=== PATIENT | female | born 1960 | race Caucasian/White ===

== ENCOUNTER 2020-04-21 07:49 | Outpatient (REF) | payer OTHER, SELFPAY ==
[2020-04-21 10:21] LABS: Hematocrit 42.6 % (37-47); Mean Corpuscular HGB Conc 32.9 g/dl (31.0-35.0); Mean Corpuscular Hemoglobin 32.3 pg (27.0-33.0); Mean Corpuscular Volume 98.4 fL (80-98); Mean Platelet Volume 10.2 fL (9.4-12.3); Platelet Count 258 X10*3/uL (160-400); Red Blood Count 4.33 X10*6/uL (4.20-5.50); Red Cell Distribution Width 12.9 % (11.0-16.0); White Blood Count 5.9 X10*3/uL (4.8-10.8)
[2020-04-21 10:40] LABS: Alanine Aminotransferase 30 U/L (0-31); Albumin Level 4.5 g/dL (3.5-5.0); Alkaline Phosphatase 62 U/L (39-117); Anion Gap 10 (12-20); Aspartate Amino Transferase 23 U/L (5-31); Bilirubin Direct 0.2 mg/dL (0.0-0.5); Bilirubin Total 0.5 mg/dL (0.0-1.0); Blood Urea Nitrogen 14 mg/dL (9-16); Calcium 9.1 mg/dL (8.4-10.2); Carbon Dioxide 30 mmol/L (22-29); Chloride 103 mmol/L (96-108); Cholesterol 147 mg/dL; Estimated Glomerular Filt Rate > 60; Glucose Fasting 94 mg/dL (60-99); HDL Cholesterol 43 mg/dL; LDL Cholesterol Calculated 79 mg/dl; Magnesium 2.3 mg/dL (1.6-2.6); Potassium 4.4 mmol/l (3.3-5.1); Sodium 139 mmol/L (135-145); Total Protein 6.8 g/dL (6.5-8.0); Triglycerides 129 mg/dL
[2020-04-21 11:02] LABS: Thyroid Stimulating Hormone 1.93 uIU/mL (0.32-4.0); Vitamin D 25-OH Total 33.2 ng/mL (>30)
== END 2020-04-21 07:50 | disposition home or self-care (01) ==
LOC: HO.10HDL 07:49
DX: E03.9 Hypothyroidism, unspecified (principal); E78.5 Hyperlipidemia, unspecified; Z00.00 Encounter for general adult medical examination without abnormal findings
CPT/HCPCS: 36415; 80053; 80061; 80076; 82248; 82306; 83735; 84439; 84443; 85027

== ENCOUNTER 2021-08-18 08:46 | Outpatient (REF) | payer OTHER, SELFPAY ==
[2021-08-18 11:02] LABS: Alanine Aminotransferase 39 U/L (0-31); Albumin Level 4.7 g/dL (3.5-5.0); Alkaline Phosphatase 63 U/L (39-117); Anion Gap 11 (12-20); Aspartate Amino Transferase 27 U/L (5-31); Bilirubin Total 0.5 mg/dL (0.0-1.0); Blood Urea Nitrogen 13 mg/dL (9-16); Calcium 9.9 mg/dL (8.4-10.2); Carbon Dioxide 28 mmol/L (22-29); Chloride 108 mmol/L (96-108); Cholesterol 216 mg/dL; Estimated Glomerular Filt Rate > 60; Glucose Random 100 mg/dL (60-115); HDL Cholesterol 45 mg/dL; LDL Cholesterol Calculated 146 mg/dl; Potassium 4.9 mmol/L (3.3-5.1); Sodium 142 mmol/L (135-145); Total Protein 7.4 g/dL (6.5-8.0); Triglycerides 127 mg/dL
[2021-08-19 09:21] LABS: Thyroglobulin Antibodies <1 IU/mL (< or = 1); Thyroid Peroxidase Antibodies <1 IU/mL (<9)
== END 2021-08-18 08:47 | disposition home or self-care (01) ==
LOC: HO.10HDL 08:46
PROVIDERS: Visit Provider Internal Medicine
DX: Z00.00 Encounter for general adult medical examination without abnormal findings (principal); E03.9 Hypothyroidism, unspecified; E78.5 Hyperlipidemia, unspecified
CPT/HCPCS: 36415; 80053; 80061; 86376; 86800

== ENCOUNTER 2022-03-12 08:25 | Outpatient (REF) | payer OTHER, SELFPAY ==
[2022-03-12 09:46] LABS: Alanine Aminotransferase 26 U/L (0-31); Albumin Level 4.6 g/dL (3.5-5.0); Alkaline Phosphatase 72 U/L (39-117); Anion Gap 14 (12-20); Aspartate Amino Transferase 21 U/L (5-31); Bilirubin Total 0.7 mg/dL (0.0-1.0); Blood Urea Nitrogen 13 mg/dL (9-16); Calcium 9.8 mg/dL (8.4-10.2); Carbon Dioxide 25 mmol/L (22-29); Chloride 105 mmol/L (96-108); Cholesterol 164 mg/dL; Estimated Glomerular Filt Rate > 60; Glucose Fasting 97 mg/dL (60-99); HDL Cholesterol 43 mg/dL; LDL Cholesterol Calculated 97 mg/dl; Potassium 4.4 mmol/L (3.3-5.1); Sodium 140 mmol/L (135-145); Total Protein 7.1 g/dL (6.5-8.0); Triglycerides 123 mg/dL
[2022-03-12 09:58] LABS: Thyroid Stimulating Hormone 1.07 uIU/mL (0.32-4.0)
== END 2022-03-12 08:26 | disposition home or self-care (01) ==
LOC: HO.LAB 08:25
PROVIDERS: PCP Internal Medicine; Visit Provider Internal Medicine
DX: E78.5 Hyperlipidemia, unspecified (principal); E03.9 Hypothyroidism, unspecified
CPT/HCPCS: 36415; 80053; 80061; 84443

== ENCOUNTER 2022-09-06 09:03 | Outpatient (REF) | payer OTHER, SELFPAY ==
[2022-09-06 10:10] LABS: Alanine Aminotransferase 24 U/L (0-31); Albumin Level 4.5 g/dL (3.5-5.0); Alkaline Phosphatase 67 U/L (39-117); Anion Gap 10 (12-20); Aspartate Amino Transferase 19 U/L (5-31); Bilirubin Total 0.8 mg/dL (0.0-1.0); Blood Urea Nitrogen 14 mg/dL (9-16); Carbon Dioxide 29 mmol/L (22-29); Chloride 108 mmol/L (96-108); Cholesterol 166 mg/dL; Estimated Glomerular Filt Rate > 60; Glucose Fasting 97 mg/dL (60-99); HDL Cholesterol 52 mg/dL; LDL Cholesterol Calculated 96 mg/dl; Potassium 4.7 mmol/L (3.3-5.1); Sodium 142 mmol/L (135-145); Total Protein 6.7 g/dL (6.5-8.0); Triglycerides 90 mg/dL
[2022-09-06 10:25] LABS: Thyroid Stimulating Hormone 0.37 uIU/mL (0.32-4.0)
== END 2022-09-06 09:04 | disposition home or self-care (01) ==
LOC: HO.LAB 09:03
PROVIDERS: PCP Internal Medicine; Visit Provider Internal Medicine
DX: E78.5 Hyperlipidemia, unspecified (principal); E03.9 Hypothyroidism, unspecified
CPT/HCPCS: 36415; 80053; 80061; 84443

== ENCOUNTER 2023-01-11 17:00 | Outpatient (AMB) | payer OTHER, SELFPAY ==
[2023-01-11 17:02] VITALS: BP 124/80; BMI 23.9
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
== END 2023-01-11 17:40 | disposition home or self-care (01) ==
PROVIDERS: PCP Internal Medicine; Visit Provider Internal Medicine
DX: R07.81 Pleurodynia (principal); F31.9 Bipolar disorder, unspecified; E03.9 Hypothyroidism, unspecified; E78.5 Hyperlipidemia, unspecified; Z09 Encounter for follow-up examination after completed treatment for conditions other than malignant neoplasm
CPT/HCPCS: 99214

== ENCOUNTER 2023-01-12 08:07 | Outpatient (REF) | payer OTHER, SELFPAY ==
--- NOTE | ~2023-01-12 | XR_ITS ---
EXAMINATION: XR RIBS, LEFT, WITH PA CHEST CLINICAL INFORMATION: Pleurodynia. COMPARISON: None available. TECHNIQUE: 5 views of the left ribs were obtained, together with a PA view of the chest. FINDINGS: Lungs are clear. No consolidation, pneumothorax, or pleural effusion. The cardiomediastinal silhouette and pulmonary vasculature are normal. Osseous structures are unremarkable. Ribs are intact. No fractures are identified. There is a mild cervicothoracic levoscoliosis. XR/XR ribs LT min 3V w CXR1V IMPRESSION: Unremarkable examination.
== END 2023-01-12 08:08 | disposition home or self-care (01) ==
LOC: HO.XRAY 08:07
PROVIDERS: PCP Internal Medicine; Visit Provider Internal Medicine
DX: R07.81 Pleurodynia (principal)
CPT/HCPCS: 71101

== ENCOUNTER 2023-03-09 08:02 | Outpatient (AMB) | payer OTHER, SELFPAY ==
[2023-03-09 08:08] VITALS: BP 122/80; PULSE 62; O2SAT 99; BMI 24.4
--- NOTE | 2023-03-09 08:08 | A.OFFPC_ITS ---
Vital Signs 03/09/23 08:08 Height 5 ft 4 in Weight 142 lb BMI 24.4 BP 122/80 Blood Pressure Location Lt brachial Position Sitting Pulse 62 Pulse Source Pulse Oximeter Pulse Oximetry (%) 99 Oxygen Delivery Method Room Air Intake Visit Reasons: thyorid Intake Note: Patient here for a follow up thyroid Anesthesia Tech Required: No Accompanied by: Self / Same As Patient Allergies No Known Allergies Allergy (Verified 03/09/23 08:22) Medication List - Last Reconciled 03/09/23 by Treasure Sutherland MD atorvastatin 20 mg PO BEDTIME 90 days bisacodyl (Dulcolax (bisacodyl)) 20 mg (4 x 5 mg) PO ONCE 1 day lamotrigine 200 mg PO BID levothyroxine 125 mcg PO DAILY lithium carbonate 300 mg PO BEDTIME peg 3350-electrolytes 236-22.74-6.74 -5.86 gram 240 mL PO Q10M propranolol ER 160 mg PO DAILY Tobacco use date assessed: 09/06/22 Fall risk assessment: 1 Fall in past year Last assessed Fall Risk: 03/09/23 Dental Screening Dental Screen Date: 03/09/23 Did you have a dental visit in the last 12 months?: Yes Did you have a dental problem in the last 6 months where you did not have access to dental care?: No Was dental information given to patient?: Patient has dentist HPI HPI Comments History of Present Illness Details This is a 62-year-old female with dyslipidemia, hypothyroidism, bipolar disorder and coarse tremors that comes today for follow-up on her conditions. Last cholesterol was stable with statins and reports no side effects. Last TSH was normal and this will be repeated today. Bipolar disorder stable with lithium and this is follow by Psychiatry. Still has coarse tremors even though she is compliant with propanolol and this is follow by Neurology. No chest pain or shortness of breath. [facility] Medical History Physical exam Bipolar 1 disorder Coarse tremors Hypothyroidism Dyslipidemia Surgical History No pertinent past surgical history Family History Father Heart attack Mother Emphysema lung Social History Housing: Apartment Alcohol intake: current Alcohol intake frequency: a few times a week Alcohol type: wine Patient Tobacco Use Status: Never used Tobacco e-Cigarette/Vaping Use: Never Used Second Hand Smoke Exposure: No service: No Current occupational status: unemployed Cognitive needs: No Hearing needs: No Vision needs: Yes Questionnaire Thrive Questionnaire Date Thrive assessed: 09/06/22 HEATH-7 AMB Questionnaire HEATH-7 Date HEATH - 7 assessed: 09/06/22 Source: Developed by Drs. Ned Watt, Rekha Mehta, Dutch Mancini and colleagues, with an educational laisha from [employer]. Review of Systems Const All systems reviewed & are unremarkable except as noted in HPI and below Eyes Reports no additional complaints, Denies change in vision and Denies other visual disturbances Card Denies chest pain at rest, Denies chest pain with activity, Denies edema, Denies irregular heart rhythm, Denies claudication, Denies dyspnea, Denies dyspnea on exertion, Denies orthopnea, Denies paroxysmal nocturnal dyspnea and Denies slow heart rate Resp Denies cough, Denies dyspnea and Denies dyspnea on exertion GI Denies abdominal pain, Denies change in bowel habits, Denies excessive flatus, Denies nausea and Denies vomiting Denies urinary incontinence, Denies urinary hesitancy and Denies urinary urgency Musc Denies atrophy, Denies deformity and Denies limited range of motion Physical exam (Primary Care) Vital Signs: Last Vital Signs Pulse 62 03/09/23 08:08 BP 122/80 03/09/23 08:08 Pulse Ox 99 03/09/23 08:08 Oxygen Delivery Method Room Air 03/09/23 08:08 BMI result Body Mass Index 24.4 Tobacco/Smoking Status: Tobacco use Status Tobacco use date assessed 09/06/22 03/09/23 08:11 Patient Tobacco Use Status Never used Tobacco 03/09/23 08:11 Tobacco use type 09/06/22 08:57 e-Cigarette/Vaping Use Never Used 03/09/23 08:11 Thrive Assessment: Date of Thrive Assessment Date Thrive assessed 09/06/22 03/09/23 08:11 Eyes General: appearance normal, both eyes and all related structures Eyelids: Yes eyelids normal Conjunctivae: conjunctivae normal Neck Neck: Yes normal visual inspection and Yes supple Resp Effort & Inspection: normal respiratory effort Auscultation: clear to auscultation bilaterally Cardio Jugular venous distension: no JVD Rate: regular rate Rhythm: regular rhythm Heart sounds: S1 normal heart sound present and S2 normal heart sound present Extrem General: Yes full ROM Office Procedures Flu Questionnaire Does the patient have a severe egg allergy?: No Immunizations flu vacc [id number] 6mos up(PF) 60 mcg(15 mcgx4)/0.5 mL IM syringe Performing Provider: Treasure Sutherland MD Performing Location: [facility] Documented (not given) by: YOBANY Garcia on 03/09/23 08:14 Reason Not Given: Patient Refused Assessment and Plan Assessment & Plan (1) Hypothyroidism: Code(s): E03.9 - Hypothyroidism, unspecified Qualifiers: Hypothyroidism type: unspecified Qualified Code(s): E03.9 - Hypothyroidism, unspecified Plan: Continue levothyroxine. Monitor TSH. (2) Dyslipidemia: Code(s): E78.5 - Hyperlipidemia, unspecified Plan: Continue statins. (3) Bipolar 1 disorder: Comment: Dr. Damon psych Code(s): F31.9 - Bipolar disorder, unspecified Plan: Continue lithium. Follow-up with psychiatry. (4) Coarse tremors: Comment: Dr. Yoder Code(s): G25.2 - Other specified forms of tremor Plan: Continue propanolol. Follow-up with Neurology. Orders: Orders Influenza [id number] Immunization Today Z23 - Encounter for immunization Thyroid Stimulating Hormone Today E03.9 - Hypothyroidism, unspecified Coding Level of Care Code Est Pt Level 4 (29005) Diagnoses Hypothyroidism, unspecified type E03.9 Hypothyroidism type: unspecified Dyslipidemia E78.5 Bipolar 1 disorder F31.9 Coarse tremors G25.2 Time Spent (min) 23
== END 2023-03-09 10:11 | disposition home or self-care (01) ==
PROVIDERS: Visit Provider Internal Medicine
DX: E03.9 Hypothyroidism, unspecified (principal); E78.5 Hyperlipidemia, unspecified; F31.9 Bipolar disorder, unspecified; G25.2 Other specified forms of tremor
CPT/HCPCS: 99214

== ENCOUNTER 2023-03-09 08:39 | Outpatient (REF) | payer OTHER, SELFPAY ==
[2023-03-09 09:42] LABS: Alanine Aminotransferase 27 U/L (0-31); Albumin Level 4.6 g/dL (3.5-5.0); Alkaline Phosphatase 72 U/L (39-117); Anion Gap 11 (12-20); Aspartate Amino Transferase 22 U/L (5-31); Bilirubin Total 0.4 mg/dL (0.0-1.0); Blood Urea Nitrogen 13 mg/dL (9-16); Carbon Dioxide 27 mmol/L (22-29); Chloride 107 mmol/L (96-108); Cholesterol 169 mg/dL (<200); Estimated Glomerular Filt Rate > 60; Glucose Fasting 95 mg/dL (60-99); HDL Cholesterol 45 mg/dL (>40); LDL Cholesterol Calculated 103 mg/dL (<100); Potassium 4.3 mmol/L (3.3-5.1); Sodium 141 mmol/L (135-145); Total Protein 7.4 g/dL (6.5-8.0); Triglycerides 107 mg/dL (<150)
[2023-03-09 09:52] LABS: Thyroid Stimulating Hormone 2.65 uIU/mL (0.32-4.0)
== END 2023-03-09 08:40 | disposition home or self-care (01) ==
LOC: HO.LAB 08:39
PROVIDERS: PCP Internal Medicine; Visit Provider Internal Medicine
DX: E03.9 Hypothyroidism, unspecified (principal); E78.5 Hyperlipidemia, unspecified
CPT/HCPCS: 36415; 80053; 80061; 84443

== ENCOUNTER 2023-07-04 06:50 | Day surgery (SDC) | payer OTHER, SELFPAY ==
--- NOTE | 2023-07-03 09:44 | P.CONAN_ITS ---
Documented by User: Lizz Montero NP 07/03/23 09:44 HPI - Anesthesia Eval Consult details Narrative: 62yo F for Colonoscopy PMFSH Active Problems Active Problems: All Active Problems (Updated 06/30/23 @ 10:17 by Treasure Sutherland MD) Skin lesion (Acute) Acute pancreatitis (Acute) Hospital discharge follow-up (Acute) Rib pain on left side (Acute) Physical exam (Acute) Bipolar 1 disorder (Acute) Coarse tremors (Acute) Hypothyroidism (Acute) Dyslipidemia (Acute) Past Medical History Medical History Physical exam Bipolar 1 disorder Coarse tremors Hypothyroidism Dyslipidemia Family History Family History Father Heart attack Mother Emphysema lung Surgical History Surgical History No pertinent past surgical history Social History Social History Housing: Apartment Alcohol intake: current Alcohol intake frequency: a few times a week Alcohol type: wine Patient Tobacco Use Status: Never used Tobacco e-Cigarette/Vaping Use: Never Used Second Hand Smoke Exposure: No Use of substances other than those prescribed or required for medical reasons: Yes Are you DNR?: No Advance Directives: No Advance Directives Information Provided: Yes service: No Current occupational status: unemployed Cognitive needs: No Hearing needs: No Vision needs: Yes Meds Allergies Allergy/AdvReac Type Severity Reaction Status Date / Time No Known Allergies Allergy Verified 03/09/23 08:22 Home Medications Medication Instructions Recorded Confirmed Last Taken Type lamotrigine 200 mg tablet 200 mg PO BID 08/31/20 07/04/23 07/04/23 History lithium carbonate 300 mg capsule 300 mg PO BEDTIME 08/31/20 03/09/23 Unknown History propranolol 160 mg capsule,24 160 mg PO DAILY 08/31/20 07/04/23 07/04/23 History hr,extended release levothyroxine 125 mcg tablet 125 mcg PO DAILY 08/18/21 07/04/23 07/04/23 History Assessment and Plan Assessment Anesthesia Assessment: Chart Reviewed Documented by User: Doroteo Cali MD 07/04/23 07:38 [facility] Past Medical History Medical History Physical exam Bipolar 1 disorder Coarse tremors Hypothyroidism Dyslipidemia Family History Family History Father Heart attack Mother Emphysema lung Surgical History Surgical History No pertinent past surgical history History of Problems with Anesthesia: No Social History Social History Housing: Apartment Alcohol intake: current Alcohol intake frequency: a few times a week Alcohol type: wine Patient Tobacco Use Status: Never used Tobacco e-Cigarette/Vaping Use: Never Used Second Hand Smoke Exposure: No Use of substances other than those prescribed or required for medical reasons: Yes Are you DNR?: No Advance Directives: No Advance Directives Information Provided: Yes service: No Current occupational status: unemployed Cognitive needs: No Hearing needs: No Vision needs: Yes Meds Allergies Allergy/AdvReac Type Severity Reaction Status Date / Time No Known Allergies Allergy Verified 03/09/23 08:22 Home Medications Medication Instructions Recorded Confirmed Last Taken Type lamotrigine 200 mg tablet 200 mg PO BID 08/31/20 07/04/23 07/04/23 History lithium carbonate 300 mg capsule 300 mg PO BEDTIME 08/31/20 03/09/23 Unknown History propranolol 160 mg capsule,24 160 mg PO DAILY 08/31/20 07/04/23 07/04/23 History hr,extended release levothyroxine 125 mcg tablet 125 mcg PO DAILY 08/18/21 07/04/23 07/04/23 History Exam Airway Mallampati Class: I TM Dist: >3cm Neck ROM: Full Loose/Missing/Broken Teeth: No Heart: rrr Lungs: cta b/l Assessment and Plan Assessment Anesthesia Assessment: Anesthesia Plan Discussed Final Anesthetic Review History of Problems with Anesthesia: No NPO: Yes ASA Class: II Final Preanesthetic Review: No Changes in Pt Med Stat, Meds/Allgs Chart Reviewed, Consent Obtained/Reviewed and Anes Risks/Benef Reviewed Patient Risk: Low Procedure Risk: Low Anesthetic Plan Anesthetic Plan: MAC: Disposition: Standard PACU
--- NOTE | 2023-07-04 06:43 | MHC.SHP ---
Pre-Procedural Eval Section A - 24 Hr Update-Section A only Date of Service: 07/04/23 Section B - Complete if H&P > 30 days Chief Complaint: screening Relevant Family History (Specify if Yes): No Relevant Social History: None Present Medications: see Short Stay Collaborative assessment Medical History: Significant History (Bipolar 1 disorder Coarse tremors Hypothyroidism Dyslipidemia) History of Previous Operations: No relevant previous surgery Allergies: Allergies Allergy/AdvReac Type Severity Reaction Status Date / Time No Known Allergies Allergy Verified 03/09/23 08:22 Review of Systems Sugical H&P ROS: Negative: Constitution, Cardiovascular, Respiratory, Neurological, Psychiatric, Hem-Onc, Allergic/Immunologic, Gastrointestinal, Genitourinary, Musculoskeletal, Integumentary, Endocrine and Eyes/Ears/Nose/Throat Exam Surgical H&P Exam: Normal: HEENT, Normal: Heart, Normal: Lungs, Normal: Extremities, Normal: Abdomen and Normal: Skin and Significant Findings: Neurological (tremor) Plan Diagnosis/Plan: Unchanged I have reviewed the history and physical and performed a pertinent physical examination on my patient. No changes have occurred unless specified. Time Spent With Patient Time: Total time managing care of this patient today ____ minutes.
[2023-07-04 07:10] VITALS: BMI 25.1
[2023-07-04 07:21] VITALS: BP 136/79; PULSE 69; RESP 16; TEMP 36.5; O2SAT 97
[2023-07-04] MEDS: Lactated Ringers 1,000 ML 100 ML IVCONT (07:28)
--- NOTE | 2023-07-04 08:08 | P.OP_ITS ---
Operative Note Operative Note Date of Service: 07/04/23 Narrative: Operative Information Procedure Description: Colonoscopy Indication: screening Anesthesia: MAC COLONOSCOPY Instrument: Olympus variable stiffness pediatric scope 190L Colonoscopy Monitoring: Vital signs and clinical assessment, continuous EKG monitoring, Pulse oximetry, Carbon Dioxide monitoring and blood pressure monitoring were done throughout the procedure. Colon withdrawal time was 8 minutes. Procedure: The patient was placed in the left lateral decubitis position and pre-procedure medications were administered. After a digital rectal examination of the ano-rectum, the video colonoscope was inserted into the rectum and advanced through the colon to the cecum/TI. The colonoscope was slowly withdrawn in a retrograde panoramic fashion and the colon mucosa was carefully examined including a retroflexed view of the rectum. Findings and interventions are described below. Procedure Difficulty: easy Findings: Terminal Ileum-normal Cecum:normal Rigth sided retroflexion- normal Ascending Colon: normal Transverse Colon -normal Descending Colon:normal Sigmoid Colon: normal Rectum: Retroflexion with small internal hemorrhoids, grade I Anorectum - normal Colon preparation: [place] Bowel Preparation Scale Right colon; 2 Transverse colon: 2 Left colon; 3 (0 = Unprepared colon segment with mucosa not seen due to solid stool that cannot be cleared. 1 = Portion of mucosa of the colon segment seen, but other areas of the colon segment not well seen due to staining, residual stool and/or opaque liquid. 2 = Minor amount of residual staining, small fragments of stool and/or opaque liquid, but mucosa of colon segment seen well. 3 = Entire mucosa of colon segment seen well with no residual staining, small fragments of stool or opaque liquid) Impression and Post Procedure Diagnosis: internal hemorrhoids Plan: High fiber diet leaflet Avoid straining at stool, epsom salts and sitz bath, anusol supps or cream Repeat Colonoscopy in 10 years or earlier if clinically indicated Above findings were reviewed with the patient and relevant handouts were provided if indicated.
[2023-07-04 08:42] VITALS: BP 95/50; PULSE 66; RESP 16; TEMP 36.4; O2SAT 96
[2023-07-04 08:50] VITALS: BP 101/56; PULSE 58; RESP 16; O2SAT 98
[2023-07-04 08:57] VITALS: BP 111/61; PULSE 59; RESP 16; O2SAT 100
[2023-07-04 09:12] VITALS: BP 121/69; PULSE 57; RESP 16; TEMP 36.4; O2SAT 100
== END 2023-07-04 09:28 | disposition home or self-care (01) ==
PROVIDERS: PCP Internal Medicine; Visit Provider Internal Medicine Gastroenterology
PROC: 0DJD8ZZ Inspection of Lower Intestinal Tract, Via Natural or Artificial Opening Endoscopic (ICD-10-PCS; CPT 45378; principal; 2023-07-04 08:20)
DX: Z12.11 Encounter for screening for malignant neoplasm of colon (principal); K64.0 First degree hemorrhoids; F31.9 Bipolar disorder, unspecified; G25.2 Other specified forms of tremor; E03.9 Hypothyroidism, unspecified; E78.5 Hyperlipidemia, unspecified; Z79.899 Other long term (current) drug therapy
CPT/HCPCS: 45378; J2704

== ENCOUNTER → 2023-07-04 06:50 | Outpatient (BNV) | payer OTHER, SELFPAY | PROVIDERS: PCP Internal Medicine; Visit Provider Internal Medicine Gastroenterology | DX: Z12.11 Encounter for screening for malignant neoplasm of colon (principal); K64.0 First degree hemorrhoids | CPT/HCPCS: 45378 ==

== ENCOUNTER 2023-08-21 12:53 | Emergency (ER) | payer OTHER, SELFPAY | END 2023-08-21 13:17 | disposition left against medical advice (07) | PROVIDERS: Emergency Provider Emergency Medicine; PCP Internal Medicine | DX: Z53.21 Procedure and treatment not carried out due to patient leaving prior to being seen by health care provider (principal); S09.90XA Unspecified injury of head, initial encounter; X58.XXXA Exposure to other specified factors, initial encounter; Y93.9 Activity, unspecified; Y92.9 Unspecified place or not applicable; Y99.9 Unspecified external cause status ==

== ENCOUNTER 2023-08-31 12:24 | Outpatient (AMB) | payer OTHER, SELFPAY ==
--- NOTE | 2023-08-31 12:31 | A.OFFPC_ITS ---
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 Accompanied by: Self / Same As Patient Allergies No Known Allergies Allergy (Verified 09/01/23 07:29) Medication List - Last Reconciled 09/01/23 by Treasure Sutherland MD atorvastatin 20 mg PO BEDTIME 90 days cyclobenzaprine 5 mg PO BEDTIME PRN 7 days lamotrigine 200 mg PO BID levothyroxine 125 mcg PO DAILY lithium carbonate 300 mg PO BEDTIME propranolol ER 160 mg PO DAILY Tobacco use date assessed: 08/31/23 Fall risk assessment: 1 Fall in past year Last assessed Fall Risk: 08/31/23 Dental Screening Dental Screen Date: 08/31/23 Did you have a dental visit in the last 12 months?: Yes Did you have a dental problem in the last 6 months where you did not have access to dental care?: No Was dental information given to patient?: Patient has dentist HPI HPI Comments History of Present Illness Details This is a 62-year-old female with dyslipidemia, hypothyroidism and bipolar disorder that comes today to remove 7 cheri in her head that were placed 10 days ago due to hitting her head in cement after falling. She did not lose consciousness. Head CT was done and was negative. The injury looks clean. She also has lumbar pain and right hip pain that started few days ago with very mild relief from muscle relaxer. The pain is worse when she changed from sitting position to standing position. On statins for her cholesterol which has been stable. Last TSH was normal. Bipolar disorder is follow by Psychiatry and has been well control with lithium. [facility] Medical History (Updated 09/01/23 @ 07:33 by Treasure Sutherland MD) Physical exam Bipolar 1 disorder Coarse tremors Hypothyroidism Dyslipidemia Surgical History No pertinent past surgical history Family History Father Heart attack Mother Emphysema lung Social History Housing: Apartment Alcohol intake: current Alcohol intake frequency: a few times a week Alcohol type: wine Patient Tobacco Use Status: Never used Tobacco e-Cigarette/Vaping Use: Never Used Second Hand Smoke Exposure: No service: No Current occupational status: unemployed Cognitive needs: No Hearing needs: No Vision needs: Yes Questionnaire PHQ-9 Over the last 2 weeks, how often have you been bothered by any of the following problems? 1. Little interest or pleasure in doing things: not at all 2. Feeling down, depressed, or hopeless: not at all 3. Trouble falling or staying asleep, or sleeping too much: not at all 4. Feeling tired or having little energy: not at all 5. Poor appetite or overeating: not at all 6. Feeling bad about yourself - or that you are a failure or have let yourself or your family down: not at all 7. Trouble concentrating on things, such as reading the newspaper or watching television: not at all 8. Moving or speaking so slowly that other people could have noticed. Or the opposite - being so fidgety or restless that you have been moving around a lot more than usual: not at all 9. Thoughts that you would be better off or of hurting yourself in some way: not at all Total score: 0 Depression Screening Interpretation: Negative Depression Screening Done: Yes 46950 - PHQ-9 Billing: Yes Source: Developed by Drs. Ned Watt, Rekha Mehta, Dutch Mancini and colleagues, with an educational laisha from [employer]. Thrive Questionnaire Date Thrive assessed: 08/31/23 I am a: Patient What is your living situation today?: I have a steady place to live Within the past 12 months, did the food you bought not last and you didn't have the money to get more?: Never true Within the past 12 months, did you worry whether your food would run out before you got money to buy more?: Never true Do you have trouble paying for medicines?: No Do you have trouble getting transportation to medical appointments?: No Do you have trouble paying your heating and electricity bill?: No Do you have trouble taking care of your child, family member or friend?: No Do you have trouble with day-to-day activities such as bathing, preparing meals, shopping, managing finances, etc.?: No Are you currently unemployed and looking for a job?: No Are you interested in more education?: No Please select the resources that you would like help with: None Currently or been in a relationship where the following occur: no concerns reported THRIVE Score: 0 AUDIT C Alcohol Use Questionnaire (AUDIT-C) 1. How often do you have a drink containing alcohol?: 2-3 times a week 2. How many drinks containing alcohol do you have on a typical day when you are drinking?: 1 or 2 3. How often do you have six or more drinks on one occasion?: Never Total Score: 3 Score Reviewed/Action Taken: Yes HEATH-7 AMB Questionnaire HEATH-7 Date HEATH - 7 assessed: 08/31/23 Feeling nervous, anxious, or on edge: 0 = Not at all Not being able to stop or control worryin = Not at all Worrying too much about different things: 0 = Not at all Trouble relaxin = Not at all Being so restless that it is hard to sit still: 0 = Not at all Becoming easily annoyed or irritable: 0 = Not at all Feeling afraid as if something awful might happen: 0 = Not at all Total HEATH-7 score (0-4 normal; 5-9 mild; 10-14 moderate; 15-21 severe): 0 Source: Developed by Drs. Ned Watt, Rekha Mehta, Dutch Mancini and colleagues, with an educational laisha from [employer]. HEATH-7 Assessment Billing HEATH-7 Assessment Tool: HEATH-7 Assessment 03993 Review of Systems Const All systems reviewed & are unremarkable except as noted in HPI and below Eyes Reports no additional complaints, Denies change in vision and Denies other visual disturbances Card Denies chest pain at rest, Denies chest pain with activity, Denies edema, Denies irregular heart rhythm, Denies claudication, Denies dyspnea, Denies dyspnea on exertion, Denies orthopnea, Denies paroxysmal nocturnal dyspnea and Denies slow heart rate Resp Denies cough, Denies dyspnea and Denies dyspnea on exertion GI Denies abdominal pain, Denies change in bowel habits, Denies excessive flatus, Denies nausea and Denies vomiting Denies urinary incontinence, Denies urinary hesitancy and Denies urinary urgency Physical exam (Primary Care) Vital Signs: Last Vital Signs BP 126/80 08/31/23 12:32 BMI result Body Mass Index 24.8 Tobacco/Smoking Status: Tobacco use Status Tobacco use date assessed 08/31/23 08/31/23 12:37 Patient Tobacco Use Status Never used Tobacco 08/31/23 12:37 Tobacco use type 09/06/22 08:57 e-Cigarette/Vaping Use Never Used 08/31/23 12:37 PHQ-9: PHQ-9 Score PHQ-9: Total score 0 08/31/23 12:37 Depression Screening Interpretation: Negative Thrive Assessment: Date of Thrive Assessment Date Thrive assessed 08/31/23 08/31/23 12:37 Currently or been in a relationship where the following occur: no concerns reported Resp Effort & Inspection: normal respiratory effort Auscultation: clear to auscultation bilaterally Cardio Jugular venous distension: no JVD Rate: regular rate Rhythm: regular rhythm Heart sounds: S1 normal heart sound present and S2 normal heart sound present Extrem General: Yes full ROM Assessment and Plan Assessment & Plan (1) Encounter for staple removal: Code(s): Z48.02 - Encounter for removal of sutures Plan: Seven stable successfully removed without complication. (2) Bipolar 1 disorder: Comment: Dr. Damon psych Code(s): F31.9 - Bipolar disorder, unspecified Plan: Continue lithium. (3) Hypothyroidism: Code(s): E03.9 - Hypothyroidism, unspecified Qualifiers: Hypothyroidism type: unspecified Qualified Code(s): E03.9 - Hypothyroidism, unspecified Plan: Continue levothyroxine. Monitor TSH. (4) Dyslipidemia: Code(s): E78.5 - Hyperlipidemia, unspecified Plan: Continue statins. Continue low-cholesterol diet. (5) Lumbar pain: Code(s): M54.50 - Low back pain, unspecified Plan: X-ray ordered. (6) Right hip pain: Code(s): M25.551 - Pain in right hip Plan: X-ray ordered. Orders: Orders XR hip RT min 2V 08/31/23 M25.551 - Pain in right hip XR lumbar spine 2-3V 08/31/23 M54.50 - Low back pain, unspecified Coding Level of Care Code Est Pt Level 4 (35650) Diagnoses Encounter for staple removal Z48.02 Bipolar 1 disorder F31.9 Hypothyroidism, unspecified type E03.9 Hypothyroidism type: unspecified Dyslipidemia E78.5 Lumbar pain M54.50 Right hip pain M25.551 Additional Codes HEATH-7 Assessment Billing - HEATH-7 Assessment Tool: HEATH-7 Assessment [id number] ([id number]) Time Spent (min) 28
[2023-08-31 12:32] VITALS: BP 126/80; BMI 24.8
== END 2023-08-31 13:34 | disposition home or self-care (01) ==
PROVIDERS: PCP Internal Medicine; Visit Provider Internal Medicine
DX: E03.9 Hypothyroidism, unspecified (principal); F31.9 Bipolar disorder, unspecified; Z48.02 Encounter for removal of sutures; E78.5 Hyperlipidemia, unspecified; M54.50 Low back pain, unspecified; M25.551 Pain in right hip
CPT/HCPCS: 99214

== ENCOUNTER 2023-08-31 13:41 | Outpatient (REF) | payer OTHER, SELFPAY ==
--- NOTE | ~2023-08-31 | XR_ITS ---
EXAMINATION: XR HIP, RIGHT CLINICAL INFORMATION: Pain in right hip COMPARISON: Left hip 06/13/2014 TECHNIQUE: Two views of the right hip. FINDINGS: No fracture or dislocation. Hip joint space is maintained. Mild supra-acetabular sclerosis. Small osteophyte extends off the femoral head. XR/XR hip RT min 2V IMPRESSION: No significant bony abnormality.
--- NOTE | ~2023-08-31 | XR_ITS ---
EXAMINATION: XR LUMBOSACRAL SPINE CLINICAL INFORMATION: Low back pain, unspecified COMPARISON: Lumbar spine 06/13/2014 TECHNIQUE: Three views of the lumbosacral spine. FINDINGS: There are 5 nonrib-bearing lumbar-type vertebral bodies. The height of the vertebral bodies is well-maintained. There is straightening of the usual lumbar lordosis which can be seen with muscle spasm. There is interval development of disc space narrowing at L2-L3, L4-L5 and L5-S1 with marginal osteophyte formation. There is mild retrolisthesis of L3 with respect to L4 and L2 with respect to L3. There is multilevel degenerative facet joint disease, most notable at L5-S1. XR/XR lumbar spine 2-3V IMPRESSION: 1. Muscle spasm. 2. Multilevel degenerative disc disease. 3. Multilevel degenerative facet joint disease, most notable at L5-S1. 4. Multilevel retrolisthesis.
== END 2023-08-31 13:42 | disposition home or self-care (01) ==
LOC: HO.XRAY 13:41
PROVIDERS: Visit Provider Internal Medicine
DX: M25.551 Pain in right hip (principal); M54.50 Low back pain, unspecified
CPT/HCPCS: 72100; 73502

== ENCOUNTER 2023-09-11 08:23 | Outpatient (AMB) | payer OTHER, SELFPAY ==
[2023-09-11 08:26] VITALS: BP 118/82; BMI 25.0
--- NOTE | 2023-09-11 08:26 | MHC.PC.OV ---
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 Accompanied by: Self / Same As Patient Allergies No Known Allergies Allergy (Verified 09/11/23 08:43) Medication List - Last Reconciled 09/11/23 by Treasure Sutherland MD atorvastatin 20 mg PO BEDTIME 90 days lamotrigine 200 mg PO BID levothyroxine 125 mcg PO DAILY lithium carbonate 300 mg PO BEDTIME propranolol ER 160 mg PO DAILY Tobacco use date assessed: 08/31/23 Fall risk assessment: 1 Fall in past year Last assessed Fall Risk: 09/11/23 Dental Screening Dental Screen Date: 08/31/23 HPI HPI Comments History of Present Illness Details This is a 62-year-old female that comes for her physical exam. She has bipolar disorder follow by Psychiatry that has been well controlled with medications. Last mammogram was less than a year ago and was normal as per patient. Last Pap smear was about 2-3 years ago and she follows with OBGYN annually. Last colonoscopy was June 2023 which was normal and next colonoscopy should be 2033. Denies any chest pain or shortness of breath. Had lumbar spasm that is markedly improved. [facility] Medical History Physical exam Bipolar 1 disorder Coarse tremors Hypothyroidism Dyslipidemia Surgical History No pertinent past surgical history Family History Father Heart attack Mother Emphysema lung Social History Housing: Apartment Alcohol intake: current Alcohol intake frequency: a few times a week Alcohol type: wine Patient Tobacco Use Status: Never used Tobacco e-Cigarette/Vaping Use: Never Used Second Hand Smoke Exposure: No service: No Current occupational status: unemployed Cognitive needs: No Hearing needs: No Vision needs: Yes Questionnaire Thrive Questionnaire Date Thrive assessed: 08/31/23 HEATH-7 AMB Questionnaire HEATH-7 Date HEATH - 7 assessed: 08/31/23 Source: Developed by Drs. Ned Watt, Rekha Mehta, Dutch Mancini and colleagues, with an educational laisha from [employer]. Review of Systems Const All systems reviewed & are unremarkable except as noted in HPI and below Eyes Reports no additional complaints, Denies change in vision and Denies other visual disturbances Card Denies chest pain at rest, Denies chest pain with activity, Denies edema, Denies irregular heart rhythm, Denies claudication, Denies dyspnea, Denies dyspnea on exertion, Denies orthopnea, Denies paroxysmal nocturnal dyspnea and Denies slow heart rate Resp Denies cough, Denies dyspnea and Denies dyspnea on exertion GI Denies abdominal pain, Denies change in bowel habits, Denies excessive flatus, Denies nausea and Denies vomiting Denies urinary incontinence, Denies urinary hesitancy and Denies urinary urgency Musc Denies abnormal gait, Denies atrophy, Denies deformity and Denies limited range of motion Neuro Denies abnormal gait and Denies lack of coordination Physical exam (Primary Care) Vital Signs: Last Vital Signs BP 118/82 09/11/23 08:26 BMI result Body Mass Index 25.0 Tobacco/Smoking Status: Tobacco use Status Tobacco use date assessed 08/31/23 09/11/23 08:30 Patient Tobacco Use Status Never used Tobacco 09/11/23 08:30 Tobacco use type 09/06/22 08:57 e-Cigarette/Vaping Use Never Used 09/11/23 08:30 Thrive Assessment: Date of Thrive Assessment Date Thrive assessed 08/31/23 09/11/23 08:30 Const Orientation/consciousness: patient oriented x3 [facility] Head: Yes normal to inspection, Yes normocephalic and Yes atraumatic Ears: external ears normal Eyes General: appearance normal, both eyes and all related structures Eyelids: Yes eyelids normal Conjunctivae: conjunctivae normal Neck Neck: Yes normal visual inspection and Yes supple Resp Effort & Inspection: normal respiratory effort Auscultation: clear to auscultation bilaterally Cardio Jugular venous distension: no JVD Rate: regular rate Rhythm: regular rhythm Heart sounds: S1 normal heart sound present and S2 normal heart sound present GI Inspection: Yes normal to inspection Palpation (GI): Soft to palpation and nontender Auscultation: normal bowel sounds Skin General skin exam: no rashes or lesions noted Neuro General: patient oriented x3 and no focal motor deficits Extrem General: Yes full ROM Psych Appearance: grossly normal Assessment and Plan Assessment & Plan (1) Physical exam: Code(s): Z00.00 - Encounter for general adult medical examination without abnormal findings Plan: Repeat in a year. (2) Bipolar 1 disorder: Comment: Dr. Damon psych Code(s): F31.9 - Bipolar disorder, unspecified Plan: Continue lamotrigine. Follow-up with psychiatry. Orders: Orders Thyroid Stimulating Hormone Today E03.9 - Hypothyroidism, unspecified Coding Level of Care Code Est Pt Prev Care 40-64y(55859) Diagnoses Physical exam Z00.00 Bipolar 1 disorder F31.9 Time Spent (min) 32
== END 2023-09-11 08:57 | disposition home or self-care (01) ==
PROVIDERS: Visit Provider Internal Medicine
DX: Z00.00 Encounter for general adult medical examination without abnormal findings (principal); F31.9 Bipolar disorder, unspecified
CPT/HCPCS: 99396

== ENCOUNTER 2024-03-13 08:18 | Outpatient (AMB) | payer OTHER, SELFPAY ==
--- NOTE | 2024-03-13 08:22 | MHC.PC.OV ---
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 Accompanied by: Self / Same As Patient Allergies No Known Allergies Allergy (Verified 03/13/24 08:48) Medication List - Last Reconciled 03/13/24 by Treasure Sutherland MD atorvastatin 20 mg PO BEDTIME 90 days lamotrigine 200 mg PO BID levothyroxine 125 mcg PO DAILY lithium carbonate 300 mg PO BEDTIME propranolol ER 160 mg PO DAILY Tobacco use date assessed: 08/31/23 Fall risk assessment: No Falls in past year Last assessed Fall Risk: 03/13/24 Dental Screening Dental Screen Date: 03/13/24 Did you have a dental visit in the last 12 months?: Yes Did you have a dental problem in the last 6 months where you did not have access to dental care?: No Was dental information given to patient?: Patient has dentist HPI HPI Comments History of Present Illness Details This is a 63-year-old female with hypothyroidism, bipolar disorder, coarse tremors and dyslipidemia that comes today for follow-up on her conditions. Last TSH was normal. Bipolar disorder is follow by Psychiatry and has been stable with [facility]. She has coarse tremors follow by Neurology on has noticed that tremors has worsened. Will discuss it with Neurology. Had bronchitis about a month ago and is still occasionally coughing. No chest pain or shortness on breath. On statins for elevated cholesterol and reports no side effects. [facility] Medical History Physical exam Bipolar 1 disorder Coarse tremors Hypothyroidism Dyslipidemia Surgical History No pertinent past surgical history Family History Father Heart attack Mother Emphysema lung Social History Housing: Apartment Alcohol intake: current Alcohol intake frequency: a few times a week Alcohol type: wine Patient Tobacco Use Status: Never used Tobacco e-Cigarette/Vaping Use: Never Used Second Hand Smoke Exposure: No service: No Current occupational status: unemployed Cognitive needs: No Hearing needs: No Vision needs: Yes Questionnaire Thrive Questionnaire Date Thrive assessed: 08/31/23 HEATH-7 AMB Questionnaire HEATH-7 Date HEATH - 7 assessed: 08/31/23 Source: Developed by Drs. Ned Watt, Rekha Mehta, Dutch Mancini and colleagues, with an educational laisha from [employer]. Review of Systems Const All systems reviewed & are unremarkable except as noted in HPI and below Eyes Reports no additional complaints, Denies change in vision and Denies other visual disturbances Card Denies chest pain at rest, Denies chest pain with activity, Denies edema, Denies irregular heart rhythm, Denies claudication, Denies dyspnea, Denies dyspnea on exertion, Denies orthopnea, Denies paroxysmal nocturnal dyspnea and Denies slow heart rate Resp Denies cough, Denies dyspnea and Denies dyspnea on exertion Physical exam (Primary Care) Vital Signs: Last Vital Signs BP 126/80 03/13/24 08:23 BMI result Body Mass Index 24.3 Tobacco/Smoking Status: Tobacco use Status Tobacco use date assessed 08/31/23 03/13/24 08:28 Patient Tobacco Use Status Never used Tobacco 03/13/24 08:28 Tobacco use type 09/06/22 08:57 e-Cigarette/Vaping Use Never Used 03/13/24 08:28 Thrive Assessment: Date of Thrive Assessment Date Thrive assessed 08/31/23 03/13/24 08:28 Resp Effort & Inspection: normal respiratory effort Auscultation: clear to auscultation bilaterally Cardio Jugular venous distension: no JVD Rate: regular rate Rhythm: regular rhythm Heart sounds: S1 normal heart sound present and S2 normal heart sound present Extrem General: Yes full ROM Coding Level of Care Code Est Pt Level 4 (14348) Complex EM visit Add On G2211 Diagnoses Bipolar 1 disorder F31.9 Hypothyroidism, unspecified type E03.9 Hypothyroidism type: unspecified Dyslipidemia E78.5 Coarse tremors G25.2 Time Spent (min) 22 Assessment & Plan Assessment & Plan (1) Bipolar 1 disorder: Comment: Dr. Damon psych Code(s): F31.9 - Bipolar disorder, unspecified Category: Medical Plan: Continue lithium. (2) Hypothyroidism: Code(s): E03.9 - Hypothyroidism, unspecified Category: Medical Qualifiers: Hypothyroidism type: unspecified Qualified Code(s): E03.9 - Hypothyroidism, unspecified Plan: Continue levothyroxine. Monitor TSH. (3) Dyslipidemia: Code(s): E78.5 - Hyperlipidemia, unspecified Category: Medical Plan: Continue statins. (4) Coarse tremors: Comment: Dr. Yoder Code(s): G25.2 - Other specified forms of tremor Category: Medical Plan: Continue propranolol. Follow-up with Neurology. Orders: Orders Influenza [id number] Immunization Today Z23 - Encounter for immunization Lipid Panel 6 Months E78.5 - Hyperlipidemia, unspecified Comprehensive [place]. Panel Fast 6 Months G25.2 - Other specified forms of tremor Thyroid Stimulating Hormone 6 Months E03.9 - Hypothyroidism, unspecified Medications: New benzonatate 100 mg PO BID PRN 10 caps 0RF cough 5 days Fluarix Triv [id number] (PF) (flu vacc [id number] 6mos up(PF)) 0.5 mL IM ONCE 0.5 mL 0RF NS Z23 - Encounter for immunization
[2024-03-13 08:23] VITALS: BP 126/80; BMI 24.3
== END 2024-03-13 08:59 | disposition home or self-care (01) ==
LOC: HO.HMCH 08:19
PROVIDERS: PCP Internal Medicine; Visit Provider Internal Medicine
DX: F31.9 Bipolar disorder, unspecified (principal); E03.9 Hypothyroidism, unspecified; E78.5 Hyperlipidemia, unspecified; G25.2 Other specified forms of tremor

== ENCOUNTER 2024-05-09 15:51 | Outpatient (REF) | payer OTHER, SELFPAY ==
--- OUTSIDE RECORDS SUMMARY | 2024-05-09 17:16 | XMS_ITS | Data Portability ---
Author Organization [facility], [address] Address [address] [place] [address] Care Team Providers Care Computational Physicist Name Role Phone JAY HOFF Primary Care Provider [phone] Assessment No assessment recorded. Plan of Treatment Reminders Order Date Submit Date Provider Last Modified By Organization Details Last Modified Time Details Appointments None recorded. Lab None recorded. Referral orthopedic surgeon referral - right knee pain getting worse . recent fall also. failing conservativ e treatment. need further evaluation and treatment. [address] [facility], [address], [place], [address], 3 16:14:23 Procedures None recorded. Surgeries None recorded. Imaging XR, knee, 3 view 2022 023 [facility], [address] [facility] [address] [place], [address], 3 16:23:46 Medication Orders None recorded. Patient TargetsNo targets recorded. Patient Instructions Encounter Date Encounter Id Patient Instructions Last Modified By Organization Details Last Modified Time 12/21/2022 [id number] knee pain or injury: care instructions Not available 12/21/2022 15:20:02 MUSCULOSKELETAL- K NEE: Inspection of the knee shows erythema no ecchymosis, or swelling. FROM was limited Palpation of the calf and popliteal fossa showed no mass or tenderness. Palpation of patella was tender. Palpation of medial and lateral joint lines were nontender. Patella ? grind-test? with crepitus. Valgus and Varus testing of the knee showed definite end points. Lateral collateral ligament was non-tender. Medial collateral ligament was nontender. Anterior Drawer Maneuvers: Normal Posterior Drawer maneuvers: Normal Thanh's: Positive Roxy's Negative Not available 12/21/2022 15:32:03 Reason for Referral Orthopedic Surgeon Referral for Pain of right knee joint right knee pain getting worse . recent fall also. failing conservative treatment. need further eval right knee pain getting worse . recent fall also. failing conservative treatment. need further evaluation and treatment. Referring Physician: Edgardo Guevara, Urgent Care, Encounter Date: 12/21/2022 Results Created Date Observation Date Name Description Value Unit Range Abnormal Flag Note LastModifiedBy Organization Detail LastModifiedTime 12/22/19 23 12/21/2022 XR, knee, 3 view No observ ation record ed. [email or web address] [address] [place], [address], 12/21/2022 18:07:52 Result Notes None recorded. Problems Name Problem SNOMED Code Status Onset Date Resolution Date Notes Provider Name and Address Organization Details Recorded Time Disorder of thyroid gland 43713495 Active CHRIS DEPINTO null, PA - [facility] 3 14:55:32 Hypercholestero lemia 49608483 Active CHRIS DEPINTO null, PA - [facility] 3 14:55:53 Problem Notes None recorded. Procedures Surgical History None recorded. Imaging Results Imaging Date Name Status LastModified by Organiz ation Details LastModified Time 12/21/2022 XR, knee, 3 view completed [email or web address] [address] [place], [address], 12/21/2022 18:07:52 Procedure Notes None recorded. Medical Equipment None Reported. Allergies No known drug allergies Medications Name Sig Start Date Stop Date Status Note LastModified by Organization Details LastModified Time atorvastatin 20 mg tablet TAKE 1 TABLET BY MOUTH AT BEDTIME active Not Available Not Available No t Available lamotrigine 200 mg tablet TAKE 2 TABLETS BY MOUTH EVERY DAY active Not Available Not Available No t Available levothyroxin e 100 mcg tablet TAKE 1 TABLET BY MOUTH EVERY MORNING 12/21 completed Not Available Not Available Not Available lithium carbonate 300 mg capsule TAKE 1 CAPSULE BY MOUTH AT BEDTIME active Not Available Not Available No t Available levothyroxin e 125 mcg tablet TAKE 1 TABLET BY MOUTH EVERY MORNING active Not Available Not Available No t Available Vitals Date Recorded Body height Body mass index (BMI) Body weight Respiratory rate Oxygen saturation Oxygen saturation in Arterial blood by Pulse oximetry Heart rate Body temperature Systolic blood pressure Diastolic blood pressure Provider Name and Address Organization Details Last Updated DateTime 3 160.02 cm 25.7 kg/m2 88579.8 9 g 18 /min 98 % 98 % 62 /min 98.6 [degF] 136 mm[Hg] 89 mm[Hg] CHRIS TAYLOR PA [facility] 3 14:57:21 Social History Question Answer Notes LastModified by Organizat ion Details LastModified Time Tobacco Smoking Status Never Smoker CHRIS newberry PA [facility] 12/21/2022 14:56:05 What Is Your Level Of Alcohol Consumption? Occasional Information not available 12/21/2022 How Many Times Per Week Do You Consume Alcohol? 3-4 Times Per Week Information not available 12/21/2022 Do You Use Any Illicit Or Recreational Drugs? No Information not available 12/21/2022 Have You Recently Traveled Abroad? No Information not available 12/21/2022 Do You Or Have You Ever Used Any Other Forms Of Tobacco Or Nicotine? No Information not available 12/21/2022 Sex: Unknown Functional Status None recorded. Mental Status None recorded. Family History Relationship Description Onset Age of this Age Resolved Age Notes LastModified by Organization Details LastModified Time Father No current problems or disability Not available 12/21 14:55:55 Mother No current problems or disability Not available 12/21 14:55:55 Medical History No medical history recorded. Gynecological History Statement/Question Response Date of LMP Is there any chance of ? No LMP N/A Obstetrics History GPAL:G 0 P 0 0 0 0 Immunizations Vaccine Type Date Status Note Provider Nam e and Address Organization Details Recorded Time COVID-19, mRNA, LNP-S, PF, 100 mcg/0.5mL dose or 50 mcg/0.25mL dose 04/09/2021 completed CHRIS DEPINTO null, PA - [facility] 12/21/2022 14:54:32 COVID-19, mRNA, LNP-S, PF, 30 mcg/0.3 mL dose 08/03/2020 completed CHRIS DEPINTO null, PA - [facility] 12/21/2022 14:54:32 COVID-19, mRNA, LNP-S, PF, 30 mcg/0.3 mL dose 08/24/2020 completed CHRIS DEPINTO null, PA - [facility] 12/21/2022 14:54:32 Past Encounters Encounter ID Performer Location Encounter Start Date Encounter Closed Date Diagnosis/Indication Diagnosis SNOMED-CT Code Diagnosis ICD10 Code [id number] [address] 12/28/2020 11:45:45 12/28/2020 12:29:49 [id number] Edgardo Guevara, FACING MACHINE OPERATOR [id number] [address] 12/21/2022 14:36:26 12/21/2022 16:14:22 Pain of right knee joint 8642866411 44730 M25.561 Health Concerns Section Related Observation LastModified by Organization Detai ls LastModified Time None Recorded Concern Status LastModified by Organization Details LastModified Time None Recorded Advance Directives Directive None Recorded Payers Encounter Date Sequence Insurance Name Policy Number Policy Alejandra Covered Member ID Alejandra Member ID Guarantor Name 12/28/2020 1 [facility] [id number] Sole Corcoran [id number] Sole Corcoran 12/21/2022 1 [facility] Franki Corcoran [id number] Sole Corcoran Notes Date Note Type Note Provider Name and Address Organization Details Recorded Time 12/21/2022 text/html KneeReported bypatient.Location :right; anterior; 62 year old female stating she experience fall yesterday and now her right knee bothering her a lot. she has hx of arthritis but now having difficulty walking on it, crepitus knees bilateral. no swelling or redness noted after fall. Quality:aching; sharp; constant; worsening Severity:moderate; pain level 6/10 Duration:1 days Timing:acute Context:fall Alleviating Factors:limited weight bearing Aggravating Factors:walking; lifting; carrying; pushing/pulling; weight bearing Associated Symptoms:no numbness; no tingling; no swelling; no warmth; no ecchymosis; no catching/locking; no buckling; no instability; no radiation down leg; no drainage; no fever; no chills; no weight loss; no change in bowel/bladder habits;weakness;re dness;grinding Previous Surgery:none Prior Imaging:none Previous Injections:none Previous PT:none Work Related:no Working:no Edgardo Guevara NP [address] [place], [address], [place] - [facility] 12/26/2022 08:52:28 OBGyn Episode No OBEpisode recorded.
[2024-05-09 18:09] LABS: Influenza A PCR POSITIVE (Negative); Influenza B PCR NEGATIVE (Negative); Resp Syncy Virus RNA Qual PCR NEGATIVE (Negative); SARS COV2 PCR INHOUSE NEGATIVE (Negative)
== END 2024-05-09 15:52 | disposition home or self-care (01) ==
LOC: HO.LAB 15:51
PROVIDERS: PCP Internal Medicine; Visit Provider Internal Medicine
DX: R09.89 Other specified symptoms and signs involving the circulatory and respiratory systems (principal)
CPT/HCPCS: 0241U

== ENCOUNTER 2024-09-12 08:23 | Outpatient (AMB) | payer MEDICARE, SELFPAY ==
--- NOTE | 2024-09-12 08:26 | MHC.PC.OV ---
Vital Signs 09/12/24 08:27 Height 5 ft 3 in Weight 134 lb BMI 23.7 BP 114/70 Blood Pressure Location Lt brachial Position Sitting Intake Visit Reasons: annual exam Intake Note: Patient here for an annual physical exam Outside Plant Supervisor Required: No Accompanied by: Self / Same As Patient Allergies No Known Allergies Allergy (Verified 09/12/24 08:53) Medication List - Last Reconciled 09/12/24 by Treasure Sutherland MD atorvastatin 20 mg PO BEDTIME 90 days lamotrigine 200 mg PO BID levothyroxine 125 mcg PO DAILY lithium carbonate 300 mg PO BEDTIME propranolol ER 160 mg PO DAILY Tobacco use date assessed: 09/12/24 Fall risk assessment: No Falls in past year Last assessed Fall Risk: 09/12/24 Dental Screening Dental Screen Date: 09/12/24 Did you have a dental visit in the last 12 months?: Yes Did you have a dental problem in the last 6 months where you did not have access to dental care?: No Was dental information given to patient?: Patient has dentist HPI HPI Comments History of Present Illness Details The patient is a 63-year-old female presenting for her routine physical examination and health maintenance. She reports a history of osteoarthritis, hyperlipidemia, essential tremor, and bipolar disorder. Cortisone injections were administered in both knees for osteoarthritis on August 13. She engages in physical therapy to address joint and hip strengthening. The patient is being managed with lithium, lamotrigine, and propranolol for her bipolar disorder and essential tremor, with the regimen overseen by her psychiatrist. She has hypothyroidism managed with levothyroxine. Her recent screening and immunization history include a tetanus vaccine received last year, a mammogram, and Pap smear completed, and the upcoming need for a pneumonia vaccine since she turned 63. A colonoscopy was completed last year with the next one planned for 2033. A bone densitometry test is due as it was last conducted more than five years ago. To address family history concerns of her brother's brain aneurysm, an MRI of the brain is planned despite her asymptomatology. - Tetanus vaccine administered last year; next dose in 2033 - Mammogram completed in April - Pap smear done in 2021; no further tests needed - Colonoscopy performed last year; next due in 2033 - Pneumonia vaccine to be given today - Bone densitometry test planned - MRI of the brain ordered due to family history of aneurysms [facility] Medical History (Updated 09/12/24 @ 09:06 by Treasure Sutherland MD) Physical exam Bipolar 1 disorder Coarse tremors Hypothyroidism Dyslipidemia Surgical History No pertinent past surgical history Family History Father Heart attack Mother Emphysema lung Social History Housing: Apartment Alcohol intake: current Alcohol intake frequency: a few times a week Alcohol type: wine Patient Tobacco Use Status: Never used Tobacco e-Cigarette/Vaping Use: Never Used Second Hand Smoke Exposure: No service: No Current occupational status: unemployed Cognitive needs: No Hearing needs: No Vision needs: Yes Questionnaire PHQ-9 Over the last 2 weeks, how often have you been bothered by any of the following problems? 1. Little interest or pleasure in doing things: not at all 2. Feeling down, depressed, or hopeless: not at all 3. Trouble falling or staying asleep, or sleeping too much: not at all 4. Feeling tired or having little energy: not at all 5. Poor appetite or overeating: not at all 6. Feeling bad about yourself - or that you are a failure or have let yourself or your family down: not at all 7. Trouble concentrating on things, such as reading the newspaper or watching television: not at all 8. Moving or speaking so slowly that other people could have noticed. Or the opposite - being so fidgety or restless that you have been moving around a lot more than usual: not at all 9. Thoughts that you would be better off or of hurting yourself in some way: not at all Total score: 0 Depression Screening Interpretation: Negative Depression Screening Done: Yes Source: Developed by Drs. Ned Watt, Rekha Mehta, Dutch Mancini and colleagues, with an educational laisha from [employer]. Thrive Questionnaire Date Thrive assessed: 09/12/24 I am a: Patient What is your living situation today?: I have a steady place to live Within the past 12 months, did the food you bought not last and you didn't have the money to get more?: Never true Within the past 12 months, did you worry whether your food would run out before you got money to buy more?: Never true Do you have trouble paying for medicines?: No Do you have trouble getting transportation to medical appointments?: No Do you have trouble paying your heating and electricity bill?: No Do you have trouble taking care of your child, family member or friend?: No Do you have trouble with day-to-day activities such as bathing, preparing meals, shopping, managing finances, etc.?: No Are you currently unemployed and looking for a job?: No Are you interested in more education?: No Please select the resources that you would like help with: None Currently or been in a relationship where the following occur: No concerns reported THRIVE Score: 0 AUDIT C Alcohol Use Questionnaire (AUDIT-C) 1. How often do you have a drink containing alcohol?: 4 or more times a week 2. How many drinks containing alcohol do you have on a typical day when you are drinking?: 3 or 4 3. How often do you have six or more drinks on one occasion?: Never Total Score: 5 HEATH-7 AMB Questionnaire HEATH-7 Date HEATH - 7 assessed: 09/12/24 Feeling nervous, anxious, or on edge: 0 = Not at all Not being able to stop or control worryin = Not at all Worrying too much about different things: 0 = Not at all Trouble relaxin = Not at all Being so restless that it is hard to sit still: 0 = Not at all Becoming easily annoyed or irritable: 0 = Not at all Feeling afraid as if something awful might happen: 0 = Not at all Total HEATH-7 score (0-4 normal; 5-9 mild; 10-14 moderate; 15-21 severe): 0 Source: Developed by Drs. Ned Watt, Rekha Mehta, Dutch Mancini and colleagues, with an educational laisha from [employer]. HEATH-7 Assessment Billing HEATH-7 Assessment Tool: HEATH-7 Assessment 12828 Review of Systems Const All systems reviewed & are unremarkable except as noted in HPI and below Card Denies chest pain at rest, Denies chest pain with activity, Denies edema, Denies irregular heart rhythm, Denies claudication, Denies dyspnea, Denies dyspnea on exertion, Denies orthopnea, Denies paroxysmal nocturnal dyspnea and Denies slow heart rate Resp Denies cough, Denies dyspnea and Denies dyspnea on exertion Neuro Denies behavioral changes and Denies lack of coordination Psych Denies behavioral changes Physical exam (Primary Care) Vital Signs: Last Vital Signs BP 114/70 09/12/24 08:27 BMI result Body Mass Index 23.7 Tobacco/Smoking Status: Tobacco use Status Tobacco use date assessed 09/12/24 09/12/24 08:28 Patient Tobacco Use Status Never used Tobacco 09/12/24 08:28 Tobacco use type 09/06/22 08:57 e-Cigarette/Vaping Use Never Used 09/12/24 08:28 PHQ-9: PHQ-9 Score PHQ-9: Total score 0 09/12/24 09:09 Depression Screening Interpretation: Negative Thrive Assessment: Date of Thrive Assessment Date Thrive assessed 09/12/24 09/12/24 08:28 Currently or been in a relationship where the following occur: No concerns reported Resp Effort & Inspection: normal respiratory effort Auscultation: clear to auscultation bilaterally Cardio Jugular venous distension: no JVD Rate: regular rate Rhythm: regular rhythm Heart sounds: S1 normal heart sound present and S2 normal heart sound present GI Inspection: Yes normal to inspection Palpation (GI): Soft to palpation and nontender Auscultation: normal bowel sounds Skin General skin exam: no rashes or lesions noted Neuro General: no focal motor deficits Extrem General: Yes full ROM Psych Appearance: grossly normal Immunizations pneumoc 20-jase conj-dip cr(PF) 0.5 mL IM syringe Performing Provider: Treasure Sutherland MD [place] [facility] [place] [facility] Administered by: YOBANY Garcia on 09/12/24 09:09 Dose Route Admin Location Dispensed Lot Number Expiration Date [facility] Customer Order Clerk 0.5 mL IM Left Deltoid 0.5 mL [id number] 07/06/25 3333-5665-23 [employer] VIS Given Date VIS Provided VIS Publication Date 09/12/24 Single Vaccine 22 Eligibility Eligibility Date Funding Source Not [facility] Eligible 09/12/24 Private Coding Level of Care Code Est Pt Level 3 (61374) Est Pt Prev Care >65y(66563) Diagnoses Physical exam Z00.00 Bipolar 1 disorder F31.9 Family history of brain aneurysm Z82.49 Additional Codes HEATH-7 Assessment Billing - HEATH-7 Assessment Tool: HEATH-7 Assessment 83428 ([id number]) Time Spent (min) 35 Assessment & Plan Assessment & Plan (1) Physical exam: Code(s): Z00.00 - Encounter for general adult medical examination without abnormal findings Category: Medical (2) Bipolar 1 disorder: Comment: Dr. Damon psych Code(s): F31.9 - Bipolar disorder, unspecified Category: Medical (3) Family history of brain aneurysm: Code(s): Z82.49 - Family history of ischemic heart disease and other diseases of the circulatory system Category: Medical Plan Today's visit focused on providing a pneumonia vaccination and addressing the patient's health maintenance needs. Arrangements were made for a brain MRI due to the family history of intracranial aneurysms. Bone density testing has also been scheduled to monitor bone health, considering her history of osteoarthritis. Communication about her thyroid results will be made to her psychiatrist to ensure accurate interdisciplinary management of her conditions. A series of fasting blood tests to assess various biological markers relevant to ongoing therapies will be conducted. The patient's anti-tremor medication and other current treatments are suitable for her condition and being actively managed. Patient was informed and verbally consented to the use of an ambient scribe for clinic note documentation during this visit. I discussed the importance of the pneumonia vaccination with the patient as she is now 63 years old and it is a recommended preventative measure against pneumococcal diseases. I also addressed her family history of brain aneurysms and suggested a brain MRI for due diligence, ensuring she understood it was precautionary; the patient gave verbal consent. We spoke about her previous bone density test and the current recommendation for a repeat study to monitor osteo health. Given her lipid management needs, I outlined the significance of the atorvastatin regimen and appropriate fasting blood work for comprehensive monitoring. Her adherence to bipolar and tremor medications was acknowledged and will continue under psychiatric supervision, augmented by ensuring her necessary results reach the psychiatrist for integrated care. I detailed that the referred physical therapy for osteoarthritis aims to enhance joint health, supporting positive lifestyle choices. Orders: Orders XR DEXA axial skeleton Today Z78.0 - Asymptomatic menopausal state Comprehensive [place]. Panel Fast Today Z00.00 - Encounter for general adult medical examination without abnormal findings Complete Blood Count Auto Diff Today G25.2 - Other specified forms of tremor MR angio head wo con Today Z82.49 - Family history of ischemic heart disease and other diseases of the circulatory system Lipid Panel Today E78.5 - Hyperlipidemia, unspecified Thyroid Stimulating Hormone Today E03.9 - Hypothyroidism, unspecified Pneumococcal 20 Immunization Today Z23 - Encounter for immunization Patient Instructions: - Get a pneumonia vaccine today. - Schedule and complete the brain MRI as discussed. - Undergo a bone density scan. - Continue current medications as prescribed. - Fasting blood work to be done for cholesterol and thyroid levels. - Attend physical therapy sessions for joint strengthening. - Follow up with your psychiatrist with updated thyroid results. - Return for regular check-ups and screenings as scheduled.
[2024-09-12 08:27] VITALS: BP 114/70; BMI 23.7
--- OUTSIDE RECORDS SUMMARY | 2024-09-12 08:41 | XMS_ITS | Data Portability ---
Author Organization [facility], [address] Address [address] [place] [address] Care Team Providers Care Veneer Department Manager Name Role Phone JAY HOFF Primary Care Provider [phone] Assessment No assessment recorded. Plan of Treatment Reminders Order Date Submit Date Provider Last Modified By Organization Details Last Modified Time Details Appointments None recorded. Lab None recorded. Referral orthopedic surgeon referral - right knee pain getting worse . recent fall also. failing conservativ e treatment. need further evaluation and treatment. [address] [facility], [address], [place], [address], 3 16:14:23 Procedures None recorded. Surgeries None recorded. Imaging XR, knee, 3 view 2022 023 [facility], [address] [facility] [place], [address], 3 16:23:46 Medication Orders None recorded. Patient TargetsNo targets recorded. Patient Instructions Encounter Date Encounter Id Patient Instructions Last Modified By Organization Details Last Modified Time 12/21/2022 [id number] knee pain or injury: care instructions Not [...] ation record ed. [email or web address] [address] [place], [address], 12/21/2022 18:07:52 Result Notes None recorded. Problems Name Problem SNOMED Code Status Onset Date Resolution Date Notes Provider Name and Address Organization Details Recorded Time Disorder of thyroid gland 22040611 Active CHRIS DEPINTO null, PA - [facility] 3 14:55:32 Hypercholestero lemia 33701948 Active CHRIS DEPINTO null, PA - [facility] 3 14:55:53 Problem Notes None recorded. Procedures Surgical History None recorded. Imaging Results Imaging Date Name Status LastModified by Organiz ation Details LastModified Time 12/21/2022 XR, knee, 3 view completed [email or web address] [address] [place], [address], 12/21/2022 18:07:52 Procedure Notes None recorded. Medical [...] mass index (BMI) Body weight Respiratory rate Pain severity - 0-10 verbal numeric rating [Score] - Reported Oxygen saturation Oxygen saturation in Arterial blood by Pulse oximetry Heart rate Body temperature Systolic blood pressure Diastolic blood pressure Provider Name and Address Organization Details Last Updated DateTime 3 160.02 cm 25.7 kg/m2 43545.8 9 g 18 /min 7 98 % 98 % 62 /min 98.6 [degF] 136 mm[Hg] 89 mm[Hg] CHRIS TAYLOR PA [facility] 3 14:57:21 Social History Question Answer Notes LastModified by Organizat ion Details LastModified Time Tobacco Smoking Status Never Smoker CHRIS newberry PA [facility] 12/21/2022 14:56:05 What Is Your Level [...] Diagnosis/Indication Diagnosis SNOMED-CT Code Diagnosis ICD10 Code Diagnosis Note [id number] [facility] [address] [place] [address] 12/28/2020 11:45:45 12/28/2020 12:29:49 [id number] Edgardo Pelayoaz, ADJ[employer]CT PROFESSOR OF LAW [address] [place] [address]20-550 7 12/21/2022 14:36:26 12/21/2022 16:14:22 Pain of right knee joint 1026448921 03642 M25.561 Health Concerns Section Related Observation LastModified by Organization Detai ls LastModified Time None Recorded Concern Status LastModified by Organization Details LastModified Time None Recorded Advance Directives Directive None Recorded Payers Insurance Date Sequence Insurance Name Policy Number Policy Alejandra Covered Member ID Alejandra Member ID Guarantor Name 04/07/2023 1 [facility] [place] Franki Corcoran [id number] Sole Corcoran 12/21/2022 1 [facility] [id number] Sole Corcoran [id number] Sole Corcoran Notes Date Note Type Note [...] Guevara NP [address] [place], [address], [place] - [facility] 12/26/2022 08:52:28 OBGyn Episode No OBEpisode recorded.
== END 2024-09-12 09:22 | disposition home or self-care (01) ==
LOC: HO.HMCH 08:23
PROVIDERS: PCP Internal Medicine; Visit Provider Internal Medicine
DX: Z00.00 Encounter for general adult medical examination without abnormal findings (principal); F31.9 Bipolar disorder, unspecified; Z82.49 Family history of ischemic heart disease and other diseases of the circulatory system; Z23 Encounter for immunization

== ENCOUNTER 2024-09-12 08:23 | Outpatient (REF) | payer MEDICARE, SELFPAY ==
[2024-09-12 09:27] LABS: MANUAL DIFF FLAG NO
[2024-09-12 10:57] LABS: Basophils Absolute Auto 0.1 X10*3/uL (0.0-0.2); Basophils Percent Auto 0.8 % (0-2); Eosinophils Absolute Auto 0.1 X10*3/uL (0.0-0.4); Hematocrit 43.4 % (37.0-47.0); Imm Gran Abs Auto 0.02 X10*3/uL (0.00-0.03); Imm Gran Pct Auto 0.3 % (0.0-0.4); Lymphocytes Absolute Auto 1.5 X10*3/uL (1.2-4.9); Lymphocytes Percent Auto 24.5 % (20-40); Mean Corpuscular HGB Conc 32.3 g/dl (31.0-35.0); Mean Corpuscular Hemoglobin 31.2 pg (27.0-33.0); Mean Corpuscular Volume 96.7 fL (80.0-98.0); Mean Platelet Volume 9.6 fL (9.4-12.3); Monocytes Absolute Auto 0.6 X10*3/uL (0.1-1.2); Monocytes Percent Auto 9.7 % (2-11); Neutrophils Absolute Auto 3.8 x10*3/uL (2.0-8.3); Neutrophils Percent Auto 63.7 % (45-73); Platelet Count 275 X10*3/uL (160-400); Red Blood Count 4.49 X10*6/uL (4.20-5.50); Red Cell Distribution Width 13.3 % (11.0-16.0)
[2024-09-12 11:31] LABS: Alanine Aminotransferase 34 U/L (0-31); Albumin Level 4.5 g/dL (3.5-5.0); Alkaline Phosphatase 67 U/L (39-117); Anion Gap 11 (12-20); Aspartate Amino Transferase 25 U/L (5-31); Bilirubin Total 0.4 mg/dL (0.0-1.0); Blood Urea Nitrogen 18 mg/dL (9-16); Calcium 9.7 mg/dL (8.4-10.2); Carbon Dioxide 27 mmol/L (22-29); Chloride 107 mmol/L (96-108); Cholesterol 146 mg/dL (<200); Estimated Glomerular Filt Rate > 60; Glucose Fasting 92 mg/dL (60-99); HDL Cholesterol 43 mg/dL (>40); LDL Cholesterol Calculated 89 mg/dL (<100); Potassium 4.1 mmol/L (3.3-5.1); Sodium 141 mmol/L (135-145); Total Protein 7.1 g/dL (6.5-8.0); Triglycerides 74 mg/dL (<150)
[2024-09-12 11:50] LABS: Thyroid Stimulating Hormone 1.48 uIU/mL (0.32-4.0)
== END 2024-09-12 08:24 | disposition home or self-care (01) ==
LOC: HO.LAB 08:23
PROVIDERS: PCP Internal Medicine; Visit Provider Internal Medicine
DX: Z00.00 Encounter for general adult medical examination without abnormal findings (principal); Z23 Encounter for immunization; F31.9 Bipolar disorder, unspecified; G25.2 Other specified forms of tremor; E78.5 Hyperlipidemia, unspecified; E03.9 Hypothyroidism, unspecified; Z82.49 Family history of ischemic heart disease and other diseases of the circulatory system
CPT/HCPCS: 36415; 80053; 80061; 84443; 85025; 90471; 90677; 96127; 99212; 99397

== ENCOUNTER → 2024-09-26 11:06 | Outpatient (BNV) | payer MEDICARE, SELFPAY | PROVIDERS: PCP Internal Medicine; Visit Provider Radiology Diagnostic Radiology | DX: R51.9 Headache, unspecified (principal); Z82.3 Family history of stroke | CPT/HCPCS: 70544 ==

== ENCOUNTER 2024-09-26 11:25 | Outpatient (REF) | payer MEDICARE, SELFPAY ==
--- NOTE | ~2024-09-26 | MR_ITS ---
EXAMINATION: MR ANGIOGRAPHY BRAIN WITHOUT CONTRAST CLINICAL INFORMATION: Headache. Family history of aneurysm. COMPARISON: None available. TECHNIQUE: 3-D [id number]. Maximum intensity projections [place]. FINDINGS: Anterior cerebral circulation: ICAs: No flow signal gap or abrupt cut off. MCA's: No flow signal gap or abrupt cut off. Bifurcation/trifurcation demonstrated no flow signal irregularity. ACAs: No flow signal gap or abrupt cut off. Ophthalmic arteries demonstrate normal flow signal without vascular irregularity at the origin of either side. Anterior communicating artery flow signal is present without vascular irregularity. Posterior communicating arteries flow signal is present without vascular irregularity at the origin. Posterior cerebral circulation: V3/V4 segments: Normal flow signal without flow signal gap or intimal flap. Left vertebral artery is dominant. Right posterior communicating artery flow signal is absent in the [id number]-[id number]. Left posterior inferior cerebral artery flow signal is normal. Anterior inferior cerebral arteries flow signal is normal. Basilar artery flow signal is normal. Superior cerebellar arteries flow signal is normal. [employer]: No flow signal gap or abrupt cut off. No flow signal abnormality in the basilar artery tip. MR/MR angio head wo con IMPRESSION: No aneurysm, [place]. No main cerebral artery occlusion or embolus. Negative exam. Left vertebral artery is dominant. Electronically signed by: Jasmeet Langford MD 09/26/2024 01:45 PM EDT
--- OUTSIDE RECORDS SUMMARY | 2024-09-26 12:02 | XMS_ITS | Continuity of Care Document ---
Author Organization [facility], [facility] Janet Alessandradann PT Address [address] [place] [address] Care Team Providers Care Lead Ramp Agent Name Role Phone JAY HOFF Primary Care Provider [phone] Assessment Encounter Date Assessment Date Assessment LastModified by Organization Details LastModified Time 09/24/2024 09/24/2024 Assessment: Performed lateral band walks with UE support as needed for safety for strengthening of gluteus medius needed to improve ascending stairs. Plan: Continue rx and progress as tolerated Not available 09/24/2024 12:26:57 Plan of Treatment Reminders Order Date Submit Date Provider Last Modified By Organization Details Last Modified Time Details Appointments PT FOLLOW-U P 2024 03:30P M Coy padilla, PT Not available Not available Not available PT FOLLOW-U P 2024 01:00P M Coy padilla, PT Not available Not available Not available PT FOLLOW-U P 2024 01:30P M Coy padilla, PT Not available Not available Not available PT FOLLOW-U P 2024 02:00P M Kyleigh Fam, PLANT ELECTRICAL ENGINEER Not available Not available Not available PT FOLLOW-U P 2024 01:30P M Kyleigh Fam, PLANT ELECT[employer]ICAL ENGINEER Not available Not available Not available PT FOLLOW-U P 2024 11:00A M Coy padilla, PT Not available Not available Not available PT FOLLOW-U P 2024 10:00A M Coy padilla, PT Not available Not available Not available PT FOLLOW-U P 2024 10:00A M Kyleigh Fam, PLANT ELECT[employer]ICAL ENGINEER Not available Not available Not available RECHECK 15 2024 09:15A M Dayana Argueta PA-C Not available Not available Not available Lab None recorded . Referral None recorded . Procedures None recorded . Surgeries None recorded . Imaging None recorded . Medication Orders None recorded . Patient TargetsNo targets recorded. Patient InstructionsNo instructions recorded. Reason for Referral None Reported. Problems Name Problem SNOMED Code Status Onset Date Resolution Date Notes Provider Name and Address Organization Details Recorded Time No complaints 558971624 Active Status : 'A'; Not Available [facility] 4 09:24:53 Osteoarthr itis of left knee joint 5379668739059 09 Active 2024 Dayana Argueta PA-C [address], [place], [address] , [facility] 5 10:48:04 Bilateral osteoarthr itis of knees 3994329849992 07 Active 2024 Dayana Argueta PA-C [address], [place], [address] , [facility] 5 10:48:04 Osteoarthr itis of right knee joint 8835699292080 00 Active 2024 Dayana Argueta PA-C [address], [place], [address] , [facility] 5 10:48:04 Problem Notes None recorded. Procedures Surgical History Date Name Laterality Status Provider Name and Address Organization Details Recorded Time 5 37831: Therapeutic Activities (1:1) completed Kyleigh Fam, PLANT ELECTRICAL ENGINEER [address], [place], [address], [facility] 09/24/2024 12:26:34 5 [id number] Therapeutic Exercise (1:1) completed Kyleigh Fam, PLANT ELECT[employer]ICAL ENGINEER [address], [place], [address], [facility] 09/24/2024 12:26:31 5 [id number] Therapeutic Exercise (1:1) cancelled Coy Rain, PT [address], [place], [address], [facility] 09/19/2024 17:04:14 5 72994 Therapeutic Exercise (1:1) completed Coy Rain, PT [address], [place], [address], [facility] 09/18/2024 15:06:20 5 [id number] Therapeutic Exercise (1:1) completed Kyleigh Fam, PLANT ELECTRICAL ENGINEER [address], [place], [address], [facility] 09/13/2024 16:43:49 5 [id number] Therapeutic Exercise (1:1) completed Coy Rain, PT [address], [place], [address], [facility] 09/10/2024 13:55:26 5 01922: Low complexity PT Eval completed Coy Rain, PT [address], [place], [address], [facility] 09/10/2024 13:55:54 5 Knee Kenalog 40 1cc Injection, Bilateral completed REMY CampC [address], [place], [address], [facility] 08/13/2024 10:48:59 4 22368 Therapeutic Exercise (1:1) completed Coy Rain, PT [address], [place], [address], [facility] 10/12/2023 23:09:53 4 23738 Therapeutic Exercise (1:1) completed Jennifer Douglas, PLANT ELECTRICAL ENGINEER [address], [place], [address], [facility] 10/11/2023 10:21:26 4 [id number] Therapeutic Exercise (1:1) completed Coy Rain, PT [address], [place], [address], [facility] 10/05/2023 08:34:24 4 25018 Therapeutic Exercise (1:1) completed Coy Rain, PT [address], [place], [address], [facility] 09/29/2023 13:15:22 4 34086 Therapeutic Exercise (1:1) completed Coy Rain, PT [address], [place], [address], [facility] 09/28/2023 08:54:13 4 57578 Therapeutic Exercise (1:1) completed Coy Rain, PT [address], [place], [address], [facility] 09/26/2023 09:30:40 4 20105 Therapeutic Exercise (1:1) completed Coy Rain, PT [address], [place], [address], [facility] 09/13/2023 23:33:54 4 16629 Therapeutic Exercise (1:1) completed Coy Rain, PT [address], [place], [address], [facility] 09/10/2023 01:02:11 4 05382 Therapeutic Exercise (1:1) completed Coy Rain, PT [address], [place], [address], [facility] 09/04/2023 23:23:22 4 50308 Therapeutic Exercise (1:1) completed Coy Rain, PT [address], [place], [address], [facility] 09/04/2023 15:20:07 4 29671: Low complexity PT Eval completed Coy Koffi, PT [address], [place], [address], [facility] 09/04/2023 15:20:17 4 15704 Therapeutic Exercise (1:1) cancelled Shawn Crawford, PT [address], [place], [address], [facility] 08/22/2023 12:17:25 4 91362: Low complexity PT Eval cancelled Shawn Crawford, PT [address], [place], [address], [facility] 08/22/2023 12:17:31 Imaging Results None recorded. Procedure Notes None recorded. Medical Equipment None Reported. Allergies No known drug allergies Medications Name Sig Start Date Stop Date Status Note LastModified by Organization Details LastModified Time propranolol ER 160 mg capsule,24 hr,extended release TAKE 1 CAPSULE BY MOUTH EVERY DAY FOR 90 DAYS active Not Available Not Available No t Available atorvastati n 20 mg tablet TAKE 1 TABLET BY MOUTH AT BEDTIME active Not Available Not Available No t Available lamotrigine 200 mg tablet TAKE 2 TABLETS BY MOUTH EVERY DAY active Not Available Not Available No t Available azithromyci n 250 mg tablet TAKE 2 TABLETS BY MOUTH ON DAY 1 THEN TAKE 1 TABLET DAILY ON DAYS 2-5. 08/13 completed Not Available Not Available Not Available levothyroxi ne 100 mcg tablet TAKE 1 TABLET BY MOUTH IN THE MORNING active Not Available Not Available No t Available famotidine 20 mg tablet TAKE 1 TABLET BY MOUTH DAILY FOR 14 DAYS 08/02 completed Not Available Not Available Not Available lithium carbonate 300 mg capsule TAKE 1 CAPSULE BY MOUTH EVERY DAY active Not Available Not Available No t Available benzonatate 100 mg capsule TAKE 1 CAPSULE BY MOUTH TWICE DAILY FOR 5 DAYS NEEDED FOR COUGH 08/13 completed Not Available Not Available Not Available levothyroxi ne 125 mcg tablet TAKE 1 TABLET BY MOUTH EVERY MORNING 08/02 completed Not Available Not Available Not Available bisacodyl 5 mg tablet,fredi yed release 08/02 completed Not Available Not Available Not Available carbidopa 25 mg-levodopa 100 mg tablet TAKE 1 TABLET BY MOUTH AT 7 AM AND AT 11 AM 08/13 completed Not Available Not Available Not Available ondansetron 4 mg disintegrat ing tablet DISSOLVE 1 TABLET ON THE TONGUE EVERY 8 HOURS FOR 3 DAYS NEEDED FOR NAUSEA OR VOMITING 08/02 completed Not Available Not Available Not Available diazepam 5 mg tablet TAKE 1 TABLET BY MOUTH EVERY DAY NEEDED 08/13 completed Not Available Not Available Not Available cyclobenzap rine 5 mg tablet TAKE 1 TABLET BY MOUTH AT BEDTIME FOR 7 DAYS NEEDED FOR MUSCLE SPASM 08/13 completed Not Available Not Available Not Available GaviLyte-G 236 gram-22.74 gram-6.74 gram-5.86 gram oral solution 08/02 completed Not Available Not Available Not Available BinaxNOW COVID-19 Ag Self Test kit TEST DIRECTED TODAY 08/13 completed Not Available Not Available Not Available Paxlovid 300 mg (150 mg x 2)-100 mg tablets in a dose pack TAKE 3 TABLETS BY MOUTH TWICE A DAY FOR 5 DAYS PER PACKAGE DIRECTION S 08/13 completed Not Available Not Available Not Available Vitals None Recorded Social History None recorded. Functional Status None recorded. Mental Status None recorded. Family History Nothing Reported. Medical History Condition Response Allergies/Hayfever N Coronary Artery Disease N Anxiety/Depression N Emphysema N Thyroid Problems N COPD N Pacemaker N Kidney/Bladder Problems N Anemia N Vascular Disease N Gastrointestinal Disease N Heart Attack ([place]) N Diabetes N Autoimmune disease N Bleeding Disorder N Orthotics N Arthritis Y Seizures/Epilepsy N Blood Clot N AIDS/HIV N Congestive Heart Failure (CHF) N Acid Reflux (GERD) N Cancer N Stroke N Asthma N Peripheral Vascular Disease N Sleep Apnea N Hepatitis N Heart Disease N Rheumatoid Arthritis N Arrhythmia N Pulmonary Embolism N Fibromyalgia N Hypertension N Osteoporosis N Gynecological HistoryNo gynecological history recorded. Obstetrics History GPAL:G 0 P 0 0 0 0 Past Encounters Encounter ID Performer Location Encounter Start Date Encounter Closed Date Diagnosis/Indication Diagnosis SNOMED-CT Code Diagnosis ICD10 Code Diagnosis Note [id number] Coy Rain , PT [facility] [address] [place] [address] 09/10/2024 13:24:51 09/10/2024 14:12:14 Bilateral osteoarthritis of knees 0784404726 95942 M17.0 [id number] Kyleigh Nasimjonelle, PLANT ELECTRICAL ENGINEER [facility] [address] [place] [address] 09/13/2024 10:26:53 09/13/2024 14:03:19 Bilateral osteoarthritis of knees 6555326469 51729 M17.0 [id number] Coy Rain , PT [facility] [address] [place], [place] 0 09/18/2024 14:52:59 09/18/2024 16:00:24 Bilateral osteoarthritis of knees 7874929244 16011 M17.0 [id number] Kyleigh Rousek, PLANT ELECTRICAL ENGINEER [facility] [address] [place], [place] 0 09/24/2024 11:21:40 09/24/2024 13:55:14 Bilateral osteoarthritis of knees 7073034044 86190 M17.0 Health Concerns Section Related Observation LastModified by Organization Detai ls LastModified Time None Recorded Concern Status LastModified by Organization Details LastModified Time None Recorded Payers Encounter Date Sequence Insurance Name Policy Number Policy Alejandra Covered Member ID Alejandra Member ID Guarantor Name 09/24/2024 1 [facility] (MEDICARE REPLACEMENT/A DVANTAGE - PPO) [id number] Britt Corcoran [id number] Britt Corcoran Notes Date Note Type Note Provider Name and Address Organization Details Recorded Time 09/24/2024 text/html Pt states that s he has very minimal pain and she is getting comfortable with doing the exercises at home and at the gym. Kyleigh Fam, PLANT ELECTRICAL ENGINEER [address], [place], [address], [facility] 09/24/2024 12:27:22 OBGyn Episode No OBEpisode recorded.
--- OUTSIDE RECORDS SUMMARY | 2024-09-26 12:03 | XMS_ITS | Data Portability ---
Author Organization [facility], [facility] Address [address] [place] [address] Care Team Providers Care Livestock Trucker Name Role Phone JAY HOFF Primary Care Provider Assessment Encounter Date Assessment Date Assessment LastModified by Organization Details LastModified Time 09/10/2024 09/10/2024 Assessment: Patient presents with signs and symptoms consistent with (B) knee OA, including decreased strength and limitations in functional mobility. Plan: Continue PT @ 2x/wk for 4 weeks to decrease pain, optimize motion, increase strength, and foster independence with functional ADL's. Not available 09/10/2024 17:22:58 09/13/2024 09/13/2024 Assessment: Reviewed HEP with pt and corrected technique as indicated. Plan: Continue PT to decrease pain, optimize motion, increase strength, and foster independence with functional ADL's. Not available 09/16/2024 10:26:58 09/18/2024 09/18/2024 Assessment: Pt demonstrates good tolerance to ther ex progression Plan: Continue rx and progress as tolerated Not available 09/18/2024 15:05:58 09/24/2024 09/24/2024 Assessment: Performed lateral band walks with UE support as needed for safety for strengthening of gluteus medius needed to improve ascending stairs. Plan: Continue rx and progress as tolerated Not available 09/24/2024 12:26:57 Plan of Treatment Reminders Order Date Submit Date Provider Last Modified By Organization Details Last Modified Time Details Appointments PT FOLLOW-UP 2024 03:30P M Coy padilla PT Not available Not available Not available PT FOLLOW-UP 2024 01:00P M Coy Zarate e, PT Not available Not available Not available PT FOLLOW-UP 2024 01:30P M Coy Zarate e, PT Not available Not available Not available PT FOLLOW-UP 2024 02:00P M Kyleigh Fam, TITLE MANAGER Not available Not available Not available PT FOLLOW-UP 2024 01:30P M Kyleigh Fam, TITLE MANAGER Not available Not available Not available PT FOLLOW-UP 2024 11:00A M Coy Zarate e, PT Not available Not available Not available PT FOLLOW-UP 2024 10:00A M Coy Zarate e, PT Not available Not available Not available PT FOLLOW-UP 2024 10:00A M Kyleigh Fam, TITLE MANAGER Not available Not available Not available RECHECK 15 2024 09:15A M Dayana Argueta PA-C Not available Not available Not available Lab None recorded. Referral None recorded. Procedures None recorded. Surgeries None recorded. Imaging XR, knee, 4 or more view - 217, 4 views of bilateral knees. 20[email or web address] [facility], [address] [facility] [facility] [address], [place], [address], 08/15/2024 13:22:56 Medication Orders None recorded. Patient TargetsNo targets recorded. Patient InstructionsNo instructions recorded. Reason for Referral None Reported. Results Created Date Observation Date Name Description Value Unit Range Abnormal Flag Note LastModifiedBy Organization Detail LastModifiedTime 08/14/19 25 08/13/2024 XR, knee, 4 or more view http:/ [email or web address] ?Encry pted=s hAaTro YD8dLq bEUv6g %2BXZw aYqtaq 0bqfl% 2Fg9IQ a4ajBk vP9nXo QUaueC m3YtLR FvZlgJ JJ8mAn HZtai3 2j5106 AC0KqY 36CWKG mKiQtr MwF INTERFACE [facility] [address], [place], [address], 08/13/2024 13:54:24 08/14/1908/13/2024 XR, knee, 4 or more view http:/ [email or web address] ?Encry pted=s hAaTro YD8dLq bEUv6g %2BXZw aYqtaq 0bqfl% 2Fg9IQ a4ajBk vP9nXo QUaueC m3YtLR FvZlgJ JJ8mAn HZtai3 9y4502 AC0KqY 36CWKG mKiQtr MwF INTERFACE [facility] [address], [place], [address], 08/13/2024 13:54:26 Result Notes None recorded. Problems Name Problem SNOMED Code Status Onset Date Resolution Date Notes Provider Name and Address Organization Details Recorded Time No complaints 815252626 Active Status : 'A'; Not Available [facility] 4 09:24:53 Osteoarthr itis of left knee joint 8099859792978 09 Active 2024 Dayana Argueta PA-C [address], [place], [address] , [facility] 5 10:48:04 Bilateral osteoarthr itis of knees 2827163110457 07 Active 2024 Dayana Argueta PA-C [address], [place], [address] , [facility] 5 10:48:04 Osteoarthr itis of right knee joint 0338103742429 00 Active 2024 Dayana Argueta PA-C [address], [place], [address] , [facility] 5 10:48:04 Problem Notes None recorded. Procedures Surgical History Date Name Laterality Status Provider Name and Address Organization Details Recorded Time 5 66999: Therapeutic Activities (1:1) completed Kyleigh Jasak, TITLE MANAGER [address], [place], [address], [facility] 09/24/2024 12:26:34 5 46169 Therapeutic Exercise (1:1) completed Kyleigh Fam, TITLE MANAGER [address], [place], [address], [facility] 09/24/2024 12:26:31 5 28842 Therapeutic Exercise (1:1) cancelled Coy Rain, PT [address], [place], [address], [facility] 09/19/2024 17:04:14 5 84930 Therapeutic Exercise (1:1) completed Coy Rain, PT [address], [place], [address], [facility] 09/18/2024 15:06:20 5 37814 Therapeutic Exercise (1:1) completed Kyleigh Fam, TITLE MANAGER [address], [place], [address], [facility] 09/13/2024 16:43:49 5 25103 Therapeutic Exercise (1:1) completed Coy Rain, PT [address], [place], [address], [facility] 09/10/2024 13:55:26 5 32290: Low complexity PT Eval completed Coy Rain, PT [address], [place], [address], [facility] 09/10/2024 13:55:54 5 Knee Kenalog 40 1cc Injection, Bilateral completed Dayana Argueta PA-C [address], [place], [address], [facility] 08/13/2024 10:48:59 4 01081 Therapeutic Exercise (1:1) completed Coy Rain, PT [address], [place], [address], [facility] 10/12/2023 23:09:53 4 78864 Therapeutic Exercise (1:1) completed Jennifer Douglas, TITLE MANAGER [address], [place], [address], [facility] 10/11/2023 10:21:26 4 21873 Therapeutic Exercise (1:1) completed Coy Rain, PT [address], [place], [address], [facility] 10/05/2023 08:34:24 4 28447 Therapeutic Exercise (1:1) completed Coy Rain, PT [address], [place], [address], [facility] 09/29/2023 13:15:22 4 51830 Therapeutic Exercise (1:1) completed Coy Rain, PT [address], [place], [address], [facility] 09/28/2023 08:54:13 4 49266 Therapeutic Exercise (1:1) completed Coy Rain, PT [address], [place], [address], [facility] 09/26/2023 09:30:40 4 45184 Therapeutic Exercise (1:1) completed Coy Rain, PT [address], [place], [address], [facility] 09/13/2023 23:33:54 4 90311 Therapeutic Exercise (1:1) completed Coy Rain, PT [address], [place], [address], [facility] 09/10/2023 01:02:11 4 91711 Therapeutic Exercise (1:1) completed Coy Rain, PT [address], [place], [address], [facility] 09/04/2023 23:23:22 4 26025 Therapeutic Exercise (1:1) completed Coy Rain, PT [address], [place], [address], [facility] 09/04/2023 15:20:07 4 43849: Low complexity PT Eval completed Coy Rain, PT [address], [place], [address], [facility] 09/04/2023 15:20:17 4 61779 Therapeutic Exercise (1:1) cancelled Shawn Crawford, PT [address], [place], [address], [facility] 08/22/2023 12:17:25 4 42972: Low complexity PT Eval cancelled Shawn Crawford, PT [address], [place], [address], [facility] 08/22/2023 12:17:31 Imaging Results Imaging Date Name Status LastModified by Organiz ation Details LastModified Time 08/13/2024 XR, knee, 4 or more view completed INTERFACE [facility] [address], [place], [address], 08/13/2024 13:54:24 08/13/2024 XR, knee, 4 or more view completed INTERFACE [facility] [address], [place], [address], 08/13/2024 13:54:26 Procedure Notes None recorded. Medical Equipment None [...] Not Available Not Available Not Available Vitals Date Recorded Body height Body mass index (BMI) Body weight Provider Name and Address Organization Details Last Updated DateTime 08/13/2024 160.02 cm 23.9 kg/m2 27870.97 g Bridger Hackett [place] - [facility] 08/13/2024 13:45:29 Social History None recorded. Functional Status None recorded. Mental Status None recorded. Family History Nothing Reported. Medical History Condition Response Allergies/Hayfever N Coronary Artery Disease N Anxiety/Depression N Emphysema N Thyroid Problems N COPD N Pacemaker N Anemia N Kidney/Bladder Problems N Vascular Disease N Gastrointestinal Disease N Heart Attack ([place]) N Diabetes N Autoimmune disease N Bleeding Disorder N Orthotics N Seizures/Epilepsy N Arthritis Y Blood Clot N AIDS/HIV N Congestive Heart Failure (CHF) N Acid Reflux (GERD) N Cancer N Stroke N Asthma N Peripheral Vascular Disease N Sleep Apnea N Hepatitis N Heart Disease N Rheumatoid Arthritis N Pulmonary Embolism N Arrhythmia N Fibromyalgia N Hypertension N Osteoporosis N Gynecological HistoryNo gynecological history recorded. Obstetrics History GPAL:G 0 P 0 0 0 0 Past Encounters Encounter ID Performer Location Encounter Start Date Encounter Closed Date Diagnosis/Indication Diagnosis SNOMED-CT Code Diagnosis ICD10 Code Diagnosis Note [id number] Roseline Salgado [place] [address] 08/03/2023 12:51:30 08/03/2023 13:39:20 Pain of right hip joint 1628857569 41052 M25.551 Strain of hamstring tendon 152008532 S76.311A [id number] Coy Rain , PT [facility] [address] [place] [address] 09/04/2023 13:20:43 09/04/2023 14:34:09 Strain of hamstring tendon 846693896 S76.311D [id number] Coy Rain PT [facility] [address] [place] [address] 09/06/2023 11:46:17 09/06/2023 12:32:00 Strain of hamstring tendon 239902574 S76.311D [id number] [facility] [address] [place] [address] 09/11/2023 10:26:43 09/11/2023 10:57:01 Strain of hamstring tendon 286385019 S76.311D [id number] Coy Rain , PT [facility] [address] [facility] [address] 09/15/2023 08:32:25 09/15/2023 09:24:27 Strain of hamstring tendon 193106485 S76.311D [id number] Coy [facility] [address] [facility] [address] 09/26/2023 10:57:25 09/26/2023 11:25:41 Strain of hamstring tendon 021303327 S76.311D [id number] Coy Rain , [facility] [address] [facility] [place] [address] 09/28/2023 14:28:14 09/28/2023 14:49:31 Strain of hamstring tendon 036430950 S76.311D [id number] Coy Rain , [facility] [address] [place] [address] 10/03/2023 10:28:47 10/03/2023 11:07:42 Strain of hamstring tendon 983569597 S76.311D [id number] Coy Rain , [facility] [address] [place] [address] 10/05/2023 08:30:23 10/05/2023 09:04:31 Strain of hamstring tendon 049643625 S76.311D [id number] Jennifer Douglas , TITLE MANAGER [facility] [address] [facility] [address] 10/11/2023 15:30:04 10/11/2023 15:49:41 Strain of hamstring tendon 677257435 S76.311D [id number] Coy Rain , [facility] [address] [address] 10/13/2023 15:58:17 10/13/2023 16:08:10 Strain of hamstring tendon 958834924 S76.311D [id number] ER[facility] 3rd floor [address] [place] [address] 08/13/2024 13:08:34 08/23/2024 10:41:23 Bilateral osteoarthritis of knees 7226266898 09452 M17.0 Nature of the diagnosis discussed with the patient today. They are having an acute exacerbati on of symptoms including pain, swelling and difficulty participat ing in ADL's. Both surgical and nonsurgica l options were reviewed. Conservati ve treatment options including activity modificati on, low impact exercise program such as swimming, stationary biking, swimming or rowing, physical therapy, NSAIDs, and injections were discussed. At this point patient elects to move forward with a repeat cortisone injection. Patient tolerated the procedure well. Post injection precaution s reviewed. They will continue with conservati ve modalities including icing and elevating. Follow-up with us as symptoms dictate for discussion of continued conservati ve management options versus total joint arthroplas ty. Will also refer her for physical therapy program as she feels that her quads are atrophied. Encouraged low-impact exercise program with stationary biking. Follow-up in 3 months to see how cortisone and biking have worked for her. Could consider gel injections versus operative referral if she has persistent symptoms. [id number] Coy Rain , PT [facility] [address] [place] [address] 09/10/2024 13:24:51 09/10/2024 14:12:14 Bilateral osteoarthritis of knees 4758044882 23116 M17.0 [id number] Kyleigh Fam, TITLE MANAGER [facility] [address] [place] [address] 09/13/2024 10:26:53 09/13/2024 14:03:19 Bilateral osteoarthritis of knees 9172373249 77662 M17.0 [id number] Coy Rain , PT [facility] [address] [place] [address] 09/18/2024 14:52:59 09/18/2024 16:00:24 Bilateral osteoarthritis of knees 1901532928 08398 M17.0 [id number] Kyleigh Fam, TITLE MANAGER [facility] [address] [place] [address] 09/24/2024 11:21:40 09/24/2024 13:55:14 Bilateral osteoarthritis of knees 4313819496 93426 M17.0 Health Concerns Section Related Observation LastModified by Organization Detai ls LastModified Time None Recorded Concern Status LastModified by Organization Details LastModified Time None Recorded Advance Directives Directive None Recorded Payers Encounter Date Sequence Insurance Name Policy Number Policy Alejandra Covered Member ID Alejandra Member ID Guarantor Name 08/13/2024 1 [facility] (MEDICARE REPLACEMENT/A DVANTAGE - PPO) [id number] Britt Jewell [id number] [facility] 09/10/2024 1 [facility] (MEDICARE REPLACEMENT/A DVANTAGE - PPO) [id number] Britt Gutierreztner [id number] [facility] 09/13/2024 1 [facility] (MEDICARE REPLACEMENT/A DVANTAGE - PPO) [id number] Britt Gutierreztner [id number] Britt Gutierreztner 09/18/2024 1 [facility] (MEDICARE REPLACEMENT/A DVANTAGE - PPO) [id number] Britt Gutierreztner [id number] [facility] 09/24/2024 1 [facility] (MEDICARE REPLACEMENT/A DVANTAGE - PPO) [id number] Britt Corcoran [id number] Britt Corcoran Notes Date Note Type Note Provider Name and Address Organization Details Recorded Time 08/13/2024 text/html I am seeing the patient under the general supervision of {{Dr. Eugene* Dr. Kamlesh Selby}} who was available but who did not see the patient. CC:Acute exacerbation of knee pain HPI:Patient presents today for acute exacerbation of {{Right Left Bilateral *}} knee pain. Is known to have advanced bilateral patellofemoral osteoarthritis treated conservatively with intermittent cortisone injections in the past as needed. Reports recent acute exacerbation of symptoms including pain, swelling and difficulty participating in ADL's. No new fall, trauma or injury reported. Last injection(s) were {{ several years ago in 2020#}} DIAGNOSTIC IMAGING: {{4 view* 3 view 2 view}} {{right left bilateral *}} {{knee* hip shoulder}} radiographs were ordered, obtained and independently reviewed by myself during today's visit at [facility] and demonstrate diffuse degenerative changes with tricompartmental osteophyte formation. Advanced patellofemoral joint space narrowing noted on lateral and merchant views with [id number] articulation of the lateral patellar facet right more progressed than left. Impression: advanced bilateral PF OA Dayana Argueta PA-C [address], [place], [address], [facility] 08/13/2024 14:12:51 09/10/2024 text/html Pt is a {{ 63#}} yo {{male female*}} who reports that she has been having (B) knee pain for the past 2 years of insidious onset. Pt states that she has been dx with (B) knee OA (R) > (L). Pt states that she had cortisone injections 08/13/24 which have helped but they are doing less now. Medical History:{{See health Hx form*}} Vocational History: {{Retired* Employed Un employed Work Comp Disability [employer] Currently Not Working}} Pain Scale Pain at Present{{0/10 1/10 2/1 0 3/10* 4/10 5/10 6/10 7/10 8/10 9/10 10/10} }Pain at Worst{{0/10 1/10 2/10 3/10 4/10 5/10* 6/10 7 /10 8/10 9/10 10/10}} Functional Limitations: Prolonged Walking{{X*}}Prolonged Standing{{X}}Stair Climbing{{X*}}Driving{ {X}} Squatting{{X*}}Kneelin g{{X}} Running{{X*}}Twisting{ {X*}} Weightbearing Status: NWB{{X}}TTWB{{X}} PWB{{X}}WBAT{{X}}FWB{{ X*}} Gait: WNL{{X*}}Antalgic{{X}} Cane{{X}}1 Crutch{{X}} Trendelenburg{{X}}FWW{ {X}}WC{{X}}2 Crutches{{X}} Alleviating Factors: Rest{{X*}}Medication{{ X}}Hot Pack{{X}} Cold Packs{{X}}Exercise{{X} } Injection{{X*}} oCy Rain, PT [address], [place], [address], [facility] 09/10/2024 17:23:07 09/13/2024 text/html Pt states that s he has been doing the exercises at home and rates her pain 2/10 at worst. She states that after she had the cortisone injections her knees have felt great. Kyleigh Fam, TITLE MANAGER [address], [place], [address], [facility] 09/16/2024 10:27:24 09/18/2024 text/html Pt reports that she has been performing the HEP and going to the gym and feels good overall. Coy Rain, PT [address], [place], [address], [facility] 09/18/2024 16:13:00 09/24/2024 text/html Pt states that s he has very minimal pain and she is getting comfortable with doing the exercises at home and at the gym. Kyleigh Fam, TITLE MANAGER [address], [place], [address], [facility] 09/24/2024 12:27:22 OBGyn Episode No OBEpisode recorded.
--- OUTSIDE RECORDS SUMMARY | 2024-09-26 12:03 | XMS_ITS | Data Portability ---
Author Organization [facility], [address] Address [address] [place] [address] Care Team Providers Care Cytogenetics Technologist Name Role Phone JAY HOFF Primary Care Provider [phone] Assessment No assessment recorded. Plan of Treatment Reminders Order Date Submit Date Provider Last Modified By Organization Details Last Modified Time Details Appointments None recorded. Lab None recorded. Referral orthopedic surgeon referral - right knee pain getting worse . recent fall also. failing conservativ e treatment. need further evaluation and treatment. [address] [facility], [address], [place], [address], 3 16:14:23 Procedures None recorded. Surgeries None recorded. Imaging XR, knee, 3 view 2022 023 [facility], [address] [facility] [place], [address], 3 16:23:46 Medication Orders None recorded. Patient TargetsNo targets recorded. Patient Instructions Encounter Date Encounter Id Patient Instructions Last Modified By Organization Details Last Modified Time 12/21/2022 [id number] knee pain or injury: care instructions Not [...] ation record ed. [email or web address] [email or web address] [place], [address], 12/21/2022 18:07:52 Result Notes None recorded. Problems Name Problem SNOMED Code Status Onset Date Resolution Date Notes Provider Name and Address Organization Details Recorded Time Disorder of thyroid gland 99051943 Active CHRIS DEPINTO null, PA - [facility] 3 14:55:32 Hypercholestero lemia 72261558 Active CHRIS DEPINTO null, PA - [facility] 3 14:55:53 Problem Notes None recorded. Procedures Surgical History None recorded. Imaging Results Imaging Date Name Status LastModified by Organiz ation Details LastModified Time 12/21/2022 XR, knee, 3 view completed [email or web address] [address] [place], [address], 12/21/2022 18:07:52 Procedure Notes None recorded. Medical [...] Updated DateTime 3 160.02 cm 25.7 kg/m2 06597.8 9 g 18 /min 98 % 98 % 62 /min 98.6 [degF] 136 mm[Hg] 89 mm[Hg] CHRIS TAYLOR PA [facility]{img} 3 14:57:21 Social History Question Answer Notes LastModified by [employer] Details LastModified Time Tobacco Smoking Status Never Smoker CHRIS [facility] 12/21/2022 14:56:05 Have You Recently Traveled Abroad? No Information not available 12/21/2022 Sex: Unknown Functional Status Question Answer Note LastModified by [employer] Details LastModified Time How many times per week do you consume alcohol? 3-4 times per week Information not available 12/21/2022 Do you use any illicit or recreational drugs? No Information not available 12/21/2022 Do you or have you ever used any other forms of tobacco or nicotine? No Information not available 12/21/2022 What is your level of alcohol consumption? Occasional Information not available 12/21/2022 Mental Status None recorded. Family History Relationship [...] SNOMED-CT Code Diagnosis ICD10 Code Diagnosis Note [id number] [facility] [address] [address] 12/28/2020 11:45:45 12/28/2020 12:29:49 [id number] Edgardo Ismael, FOOD SERVICE SPECIALIST [facility] [address] [place] [address] 12/21/2022 14:36:26 12/21/2022 16:14:22 Pain of right knee joint 4723250703 47391 M25.561 Health Concerns Section Related Observation LastModified by Organization Detai ls LastModified Time None Recorded Concern Status LastModified by Organization Details LastModified Time None Recorded Advance Directives Directive None Recorded Payers Insurance Date Sequence Insurance Name Policy Number Policy Alejandra Covered Member ID Alejandra Member ID Guarantor Name 04/07/2023 1 [facility] [place] Franki Corcoran [id number] Sole Corcoran 12/21/2022 1 [id number] Sole Corcoran [id number] Sole Corcoran Notes Date Note Type [...] Guevara NP [address] [place], [address], [place] - [facility] 12/26/2022 08:52:28 OBGyn Episode No OBEpisode recorded.
== END 2024-09-26 11:26 | disposition home or self-care (01) ==
LOC: HO.MRI 11:25
PROVIDERS: PCP Internal Medicine; Visit Provider Internal Medicine
DX: R51.9 Headache, unspecified (principal); Z82.49 Family history of ischemic heart disease and other diseases of the circulatory system
CPT/HCPCS: 70544

== ENCOUNTER 2024-10-17 08:11 | Outpatient (REF) | payer MEDICARE, SELFPAY ==
--- NOTE | ~2024-10-17 | MM_ITS ---
EXAMINATION: DXA BONE DENSITY AXIAL HISTORY: Z78.0 - Asymptomatic menopausal state TECHNIQUE: Motorpaneer Dual energy absorptiometry (DEXA) of the lumbar spine, total left hip, and femoral neck was performed. COMPARISON: There are no prior studies for comparison. FINDINGS: The bone mineral density of the lumbar spine is 1.203, corresponding to a T-score of 0.3, and a Z-score of 2.0. This is indicative of normal bone mineral density. The bone mineral density of the left total hip is 1.104, corresponding to a T-score of 0.8, and a Z-score of 2.1. This is indicative of normal bone mineral density. The bone mineral density of the left femoral neck is 1.124, corresponding to a T-score of 0.6, and a Z-score of 2.2. This is indicative of normal bone mineral density. MM/XR DEXA axial skeleton IMPRESSION: Based on bone mineral density, and according to World Health Organization (WHO) criteria, the diagnosis is consistent with normal bone mineral density. All bone density values are in grams per centimeter squared (g/cm2). Statistically, 68% of repeat scans fall within 1 SD (+/- 0.010 g/cm2 for AP spine L1-L4) and 1 SD (+/- 0.012 g/cm2 for femur total) FRAX is a trademark of the [employer]'s [place] [employer] Metabolic Bone Disease, a World Health Organization (WHO) Collaborating Center. Electronically signed by: Ned Caceres MD 10/17/2024 08:55 AM EDT
--- OUTSIDE RECORDS SUMMARY | 2024-10-17 08:15 | XMS_ITS | Data Portability ---
Author Organization [facility], [facility] Address [address] [place] [address] Care Team Providers Care Correction Officer [facility] Name Role Phone JAY HOFF Primary Care Provider Assessment Encounter Date Assessment Date Assessment LastModified by Organization Details LastModified Time 09/13/2024 09/13/2024 Assessment: Reviewed HEP with pt and corrected technique as indicated. Plan: Continue PT to decrease pain, optimize motion, increase strength, and foster independence with functional ADL's. [email or web address] Not available 09/16/2024 10:26:58 09/18/2024 09/18/2024 Assessment: Pt demonstrates good tolerance to ther ex progression Plan: Continue rx and progress as tolerated Not available 09/18/2024 15:05:58 09/24/2024 09/24/2024 Assessment: Performed lateral band walks with UE support as needed for safety for strengthening of gluteus medius needed to improve ascending stairs. Plan: Continue rx and progress as tolerated Not available 09/24/2024 12:26:57 09/27/2024 09/27/2024 Assessment: Pt demonstrates good progress with (B) LE strengthening without increased pain Plan: Continue rx and progress as tolerated Not available 09/27/2024 15:59:01 10/02/2024 10/02/2024 Assessment: Pt d/c to (I) HEP with emphasis on safe mobility and good understanding of continuation of exercises for further functional gains. Plan: D/c to (I) HEP. Not available 10/02/2024 14:24:21 Plan of Treatment Reminders Order Date Submit Date Provider Last Modified By Organization Details Last Modified Time Details Appointments RECHECK 15 2024 09:15A M Dayana Argueta [...] Address Organization Details Recorded Time No complaints [id number] Active Status : 'A'; Not Available [facility] 4 09:24:53 Osteoarthr itis of left knee joint [id number] 09 Active 2024 Dayana Argueta PA-C [address], [place], [address] , [facility] 5 10:48:04 Bilateral osteoarthr itis of knees [id number] 07 Active 2024 Dayana Argueta PA-C [address], [place], [address] , [facility] 5 10:48:04 Osteoarthr itis of right knee joint [id number] 00 Active 2024 Dayana Argueta PA-C [address], [place], [address] , [facility] 5 10:48:04 Problem Notes None recorded. Procedures Surgical History Date Name Laterality Status Provider Name and Address Organization Details Recorded Time 5 80022: Therapeutic Activities (1:1) completed Kyleigh Fam PTA [address], [place], [address], [facility] 10/02/2024 08:15:33 5 97846 Therapeutic Exercise (1:1) completed Kyleigh Fam, AGRICULTURAL EDUCATION PROFESSOR [address], [place], [address], [facility] 10/02/2024 08:15:33 5 67956: Therapeutic Activities (1:1) completed Coy Courchesne, PT [address], [place], [address], [facility] 09/26/2024 22:36:21 5 74177 Therapeutic Exercise (1:1) completed Coy Rain, PT [address], [place], [address], [facility] 09/26/2024 22:36:21 5 14769: Therapeutic Activities (1:1) completed Kyleigh Fam, AGRICULTURAL EDUCATION PROFESSOR [address], [place], [address], [facility] 09/24/2024 12:26:34 5 25517 Therapeutic Exercise (1:1) completed Kyleigh Fam, AGRICULTURAL EDUCATION PROFESSOR [address], [place], [address], [facility] 09/24/2024 12:26:31 5 71357 Therapeutic Exercise (1:1) cancelled Coy Rain, PT [address], [place], [address], [facility] 09/19/2024 17:04:14 5 72633 Therapeutic Exercise (1:1) completed Coy Rain, PT [address], [place], [address], [facility] 09/18/2024 15:06:20 5 86867 Therapeutic Exercise (1:1) completed Kyleigh Fam, AGRICULTURAL EDUCATION PROFESSOR [address], [place], [address], [facility] 09/13/2024 16:43:49 5 91428 Therapeutic Exercise (1:1) completed Coy Rain, PT [address], [place], [address], [facility] 09/10/2024 13:55:26 5 84518: Low complexity PT Eval completed Coy Rain, PT [address], [place], [address], [facility] 09/10/2024 13:55:54 5 Knee Kenalog 40 1cc Injection, Bilateral completed Dayana Argueta PA-C [address], [place], [address], [facility] 08/13/2024 10:48:59 4 97924 Therapeutic Exercise (1:1) completed Coy Rain, PT [address], [place], [address], [facility] 10/12/2023 23:09:53 4 88613 Therapeutic Exercise (1:1) completed Jennifer Douglas, AGRICULTURAL EDUCATION PROFESSOR [address], [place], [address], [facility] 10/11/2023 10:21:26 4 03540 Therapeutic Exercise (1:1) completed Coy Rain, PT [address], [place], [address], [facility] 10/05/2023 08:34:24 4 12906 Therapeutic Exercise (1:1) completed Coy Rain, PT [address], [place], [address], [facility] 09/29/2023 13:15:22 4 54705 Therapeutic Exercise (1:1) completed Coy Rain, PT [address], [place], [address], [facility] 09/28/2023 08:54:13 4 01955 Therapeutic Exercise (1:1) completed Coy Rain, PT [address], [place], [address], [facility] 09/26/2023 09:30:40 4 65721 Therapeutic Exercise (1:1) completed Coy Rain, PT [address], [place], [address], [facility] 09/13/2023 23:33:54 4 76591 Therapeutic Exercise (1:1) completed Coy Rain, PT [address], [place], [address], [facility] 09/10/2023 01:02:11 4 54503 Therapeutic Exercise (1:1) completed Coy Rain, PT [address], [place], [address], [facility] 09/04/2023 23:23:22 4 56250 Therapeutic Exercise (1:1) completed Coy Rain, PT [address], [place], [address], [facility] 09/04/2023 15:20:07 4 80033: Low complexity PT Eval completed Coy Rain, PT [address], [place], [address], [facility] 09/04/2023 15:20:17 4 63677 Therapeutic Exercise (1:1) cancelled Shawn Crawford, PT [address], [place], [address], [facility] 08/22/2023 12:17:25 4 74493: Low complexity PT Eval cancelled Shawn Crawford, PT [address], [place], [address], [facility] 08/22/2023 12:17:31 Imaging Results None recorded. Procedure [...] Disease N Gastrointestinal Disease N Heart Attack (ME) N Diabetes N Autoimmune disease N Bleeding [...] SNOMED-CT Code Diagnosis ICD10 Code Diagnosis Note [id number] Roseline Salgado [place] [address] 08/03/2023 12:51:30 08/03/2023 13:39:20 Pain of right hip joint [id number] 44320 M25.551 Strain of hamstring tendon 430312929 S76.311A [id number] Coy Rain , PT [facility] [address] [place] [address] 09/04/2023 13:20:43 09/04/2023 14:34:09 Strain of hamstring tendon 144852519 S76.311D [id number] Coy Rain , PT [facility] [address] [facility] [place] [address] 09/06/2023 11:46:17 09/06/2023 12:32:00 Strain of hamstring tendon 935547261 S76.311D [id number] Coy Rain , PT [facility] [address] [facility] [place] [address] 09/11/2023 10:26:43 09/11/2023 10:57:01 Strain of hamstring tendon 730624939 S76.311D [id number] Coy Rain , PT [facility] [address] [facility] [place] [address] 09/15/2023 08:32:25 09/15/2023 09:24:27 Strain of hamstring tendon 165328659 S76.311D [id number] Coy Rain , [facility] [address] [facility] [place] [address] 09/26/2023 10:57:25 09/26/2023 11:25:41 Strain of hamstring tendon 383998309 S76.311D [id number] Coy Rain , [facility] [address] [facility] [place] [address] 09/28/2023 14:28:14 09/28/2023 14:49:31 Strain of hamstring tendon 780450985 S76.311D [id number] Coy Rain , [facility] [address] [facility] [address] 10/03/2023 10:28:47 10/03/2023 11:07:42 Strain of hamstring tendon 708060679 S76.311D [id number] Coy Rain , [facility] [address] [facility] [place] [address] 10/05/2023 08:30:23 10/05/2023 09:04:31 Strain of hamstring tendon 260267875 S76.311D [id number] Jennifer Douglas , AGRICULTURAL EDUCATION PROFESSOR [facility] [address] [facility] [address] 10/11/2023 15:30:04 10/11/2023 15:49:41 Strain of hamstring tendon 149964036 S76.311D [id number] Coy Rain , PT [facility] [address] [facility] [place] [address] 10/13/2023 15:58:17 10/13/2023 16:08:10 Strain of hamstring tendon 932294135 S76.311D [id number] ERMELINDA Camp - [facility] [address] [place] [address] 08/13/2024 13:08:34 08/23/2024 10:41:23 Bilateral osteoarthritis of knees [id number] 49827 M17.0 Nature of the diagnosis discussed with [...] operative referral if she has persistent symptoms. [id number] Coy Rain , PT [facility] [address] [place] [address] 09/10/2024 13:24:51 09/10/2024 14:12:14 Bilateral osteoarthritis of knees 6370546256 81355 M17.0 [id number] Kyleigh Rousek, AGRICULTURAL EDUCATION PROFESSOR [facility] [address] [place] [address] 09/13/2024 10:26:53 09/13/2024 14:03:19 Bilateral osteoarthritis of knees 7221045804 14047 M17.0 [id number] Coy Rain , PT [facility] [address] [place] [address] 09/18/2024 14:52:59 09/18/2024 16:00:24 Bilateral osteoarthritis of knees 5553646890 20274 M17.0 [id number] Kyleighdalia Revelessak, AGRICULTURAL EDUCATION PROFESSOR [facility] [address] [place] [address] 09/24/2024 11:21:40 09/24/2024 13:55:14 Bilateral osteoarthritis of knees 1695293841 44658 M17.0 [id number] Coy Rain , PT [facility] [address] [place] [address] 09/27/2024 15:18:26 09/27/2024 16:49:36 Bilateral osteoarthritis of knees 5153469229 90547 M17.0 [id number] Kyleigh Fam, AGRICULTURAL EDUCATION PROFESSOR [facility] [address] [place] [address] 10/02/2024 12:50:42 10/02/2024 14:48:17 Bilateral osteoarthritis of knees [id number] 00245 M17.0 Health Concerns Section Related Observation LastModified by Organization Detai ls LastModified Time None Recorded Concern Status LastModified by Organization Details LastModified Time None Recorded Advance Directives Directive None Recorded Payers Insurance Date Sequence Insurance Name Policy Number Policy Alejandra Covered Member ID Alejandra Member ID Guarantor Name 10/01/2024 1 [facility] (MEDICARE REPLACEMENT/A DVANTAGE - PPO) [id number] Britt Corcoran [id number] Britt Corcoran 10/13/2023 1 [facility] (HMO) Franki Corcoran [id number] Britt Corcoran 10/13/2023 1 MEDICARE B-HI: [facility] Franki Corcoran [id number] Britt Corcoran 10/01/2024 1 [facility] (MEDICARE REPLACEMENT/A DVANTAGE - PPO) Franki Corcoran [id number] Britt Corcoran Notes Date Note Type Note Provider Name and Address Organization Details Recorded Time 09/13/2024 text/html Pt states that s he has been doing the exercises at home and rates her pain 2/10 at worst. She states that after she had the cortisone injections her knees have felt great. Kyleigh Fam, AGRICULTURAL EDUCATION PROFESSOR [address], [place], [address], [place] [facility] 09/16/2024 10:27:24 09/18/2024 text/html Pt reports that she has been performing the HEP and going to the gym and feels good overall. Coy Rain, PT [address], [place], [address], [facility] 09/18/2024 16:13:00 09/24/2024 text/html Pt states that s he has very minimal pain and she is getting comfortable with doing the exercises at home and at the gym. Kyleigh Fam, AGRICULTURAL EDUCATION PROFESSOR [address], [place], [address], [facility] 09/24/2024 12:27:22 09/27/2024 text/html Pt states that s he feels she has improved since coming to PT and has overall less pain and more motion. Pt reports playing golf and had more soreness. Pt rates her pain 0/10 at present. Coy Rain, PT [address], [place], [address], [facility] 09/27/2024 16:04:21 10/02/2024 text/html Pt states that s he is going to the gym and playing golf and her knees are feeling much better and not as sore. Kyleigh Fam, AGRICULTURAL EDUCATION PROFESSOR [address] [facility] [address], [place], [address], [facility] 10/02/2024 14:29:15 OBGyn Episode No OBEpisode recorded.
== END 2024-10-17 08:12 | disposition home or self-care (01) ==
LOC: HO.MAMMO 08:11
PROVIDERS: PCP Internal Medicine; Visit Provider Internal Medicine
DX: Z13.820 Encounter for screening for osteoporosis (principal); Z78.0 Asymptomatic menopausal state
CPT/HCPCS: 77080

== ENCOUNTER → 2024-10-17 08:15 | Outpatient (BNV) | payer MEDICARE, SELFPAY | PROVIDERS: PCP Internal Medicine; Visit Provider Radiology Diagnostic Radiology | DX: E28.39 Other primary ovarian failure (principal) | CPT/HCPCS: 77080 ==